=== PATIENT | male | born 1945 | race Caucasian/White ===

== ENCOUNTER 2016-05-11 10:16 | Inpatient (IN) | payer OTHER ==
[2016-05-11] MEDS ORDERED: FLONASE NAS PRN (12:15)
[2016-05-11 12:48] LABS: MANUAL DIFF NEEDED? NO
[2016-05-11 12:53] LABS: BASO% 0.3 % (0.0-0.8); EOS# 0.01 X1000 (0.0-0.7); EOS% 0.1 % (0.0-10.0); HEMATOCRIT 29.7 % (42.0-52.0); HEMOGLOBIN 9.3 g/dL (14.0-18.0); IMM GRAN# 0.06 X1000 (0.0-0.04); IMM GRAN% 0.5 % (0.0-0.5); LYMPH# 1.98 X1000 (1.2-3.4); LYMPH% 16.9 % (20.5-51.1); MCH 24.7 PG (27-31); MCHC 31.3 g/dL (33-37); MONO# 1.36 X1000 (0.11-0.59); MONO% 11.6 % (1.7-9.3); MPV 9.1 FL (7.4-10.4); NEUT% 70.6 % (42.2-75.2); PLT 615 X1000 (130-400); RBC 3.76 XMIL (4.7-6.1)
[2016-05-11] MEDS ORDERED: LOPRESSOR PO ONE (12:55)
[2016-05-11] MEDS ORDERED: ROCEPHIN 1 GM/NS 50 ML IV SCH (13:00)
[2016-05-11 13:18] LABS: AGAP 13; ALBUMIN 2.6 g/dL (3.5-5.0); ALKALINE PHOSPHATASE 70 U/L (32-122); BUN 8 mg/dL (8-22); CALCIUM 9.5 mg/dL (8.8-10.2); CHLORIDE 95 mmol/L (98-107); COSMO 273; GOT 8 U/L (10-34); GPT 5 U/L (10-44); POTASSIUM 3.6 mmol/L (3.5-5.1); SODIUM 134 mmol/L (136-145); TCO2 26 mmol/L (25-35); TOTAL PROTEIN 7.1 g/dL (6.3-8.3)
[2016-05-11 13:27] LABS: FREE T4 1.08 ng/dL (0.93-1.70)
[2016-05-11] MEDS ORDERED: CARDIZEM 100 MG/NS 100 ML ONE (14:05)
[2016-05-11] MEDS ORDERED: CARDIZEM ONE (14:05)
[2016-05-11] MEDS ORDERED: CARDIZEM IV ONE (14:11)
[2016-05-11 14:19] LABS: URINE CULTURE NEEDED? NO; URINE MICRO REVIEW NEEDED? NO; URINE SOURCE CATH
[2016-05-11 14:27] LABS: BILIRUBIN URINE NEGATIVE (NEGATIVE); BLOOD URINE SMALL (NEGATIVE); COLOR YELLOW; GLUCOSE URINE 150 mg/dL (NEGATIVE); LEUKOCYTES URINE NEGATIVE (NEGATIVE); NITRITE URINE NEGATIVE (NEGATIVE); PROTEIN URINE 300 mg/dL (NEGATIVE); TURBIDITY URINE CLEAR (CLEAR); UROBILINOGEN URINE NORMAL (NORMAL)
--- NOTE | 2016-05-11 14:28 | Diag Imaging Result Document ---
PROCEDURE NAME: CT THORAX W/O CONTRAST - 05/11/2016 CT CHEST WITHOUT CONTRAST: COMPARISON: None available. FINDINGS: There is a very large right pleural fluid collection. The fluid appears somewhat more dense than that of simple fluid. It would indicate some internal proteinaceous contrast or blood products. However, there is also some streak artifact, which could contribute to this. There is marked atelectasis on the right with essentially the entire right lower lobe and right middle lobe being nonaerated. Much of the right upper lobe is nonaerated. There is pulmonary emphysema involving the left upper lobe and the aerated portion of the right upper lobe. The nonaerated right lower lobe and right middle lobe parenchyma is heterogeneous. It is nonspecific. It is unclear if this is a result of an infectious process or possibly parenchymal masses. There is a portion of the collapsed right lung in the posterior perihilar region that has a vaguely round appearance. Neoplasm cannot be excluded. However, visualization is limited due to lack of IV contrast. There is narrowing of the right mainstem bronchus that appears to be occluded either by the adjacent rounded density or perhaps mucus plugging. In the left upper lobe posteriorly abutting the fissure, there is a 1.5 cm spiculated nodule that is nonspecific. Malignancy cannot be excluded. Short-term followup with an initial repeat chest CT in 3 months is recommended based on [employer] society criteria for this lesion alone. There is also vague nodularity at the right lung apex that is less well defined. There is airspace consolidation seen in part of the aerated portion of the right upper lobe. There are several shotty nonspecific mediastinal lymph nodes. The rounded masslike opacity in the right perihilar region appears to extend to the mediastinum. This may represent malignant lymphadenopathy. It is difficult to further characterize without IV contrast. Limited views of the upper abdomen reveal mild thickening of the left adrenal gland. This probably represents adrenal hyperplasia. These limited views of the upper abdomen are essentially unremarkable, otherwise. There is nothing that would indicate bony metastatic disease. IMPRESSION: 1. Very large right pleural effusion with marked right lung atelectasis as described. 2. Significant heterogeneity involving the atelectatic portions of the right lung. It is unclear if this is a results of an infectious process or potentially due to parenchymal masses. 3. Vaguely masslike density involving the atelectatic right lung in the posterior perihilar region as described with adjacent narrowing of the right mainstem bronchus either due to mass effect or mucus plugging. 4. Spiculated nodule in the left upper lobe as described above. 5. Pulmonary emphysema. 6. Other incidental/nonacute findings detailed above.
[2016-05-11 14:29] LABS: UR EPITHELIAL CELLS <10 /HPF (<10); URINE BACTERIA NEGATIVE /HPF; URINE RBC <10 /HPF (<10); URINE WBC <10 /HPF (<10)
[2016-05-11] MEDS: CARDIZEM 100 MG/NS 100 ML IV SCH ×2 (14:42→23:50)
[2016-05-11] MEDS: NS 1,000 ML IV SCH (14:50)
--- NOTE | 2016-05-11 14:57 | CONSULTATION ---
DATE OF CONSULTATION: 05/11/2016 REASON FOR CONSULTATION: Cardiology was consulted for atrial flutter, SVT. HISTORY OF PRESENT ILLNESS: Mr. Carrero is a 71-year-old gentleman who was transferred from [facility], [place]. He for the last 20 years has been having episodes of palpitations. This is as per his daughter. He went to the [facility], [place] with increasing shortness of breath. Denies chest pain. Electrocardiogram was noted to have supraventricular tachycardia flutter like features which was paroxysmal. Patient was subsequently transferred here. He has COPD, has noticed increasing shortness of breath. There is history of dementia as well. He has had TIAs in the past. He has had cough with mucoid expectoration. There is no hemoptysis. Does not complain of any fevers or chills. REVIEW OF SYSTEMS: A 14-point review of system was done. GI: There is no history of nausea, vomiting, diarrhea. There is no history of hematemesis or melena. Central nervous system: No focal weakness to suggest CVA, TIA. : There is no dysuria or hematuria. PAST MEDICAL HISTORY: Dementia, COPD, history of left-sided CVA in the past, diabetes, hypertension. HOME MEDICATIONS: Included. 1. Inhalers. 2. Pioglitazone 45 mg p.o. at bedtime. 3. Metformin 1000 mg p.o. b.i.d. 4. Benazepril 40. 5. Glimepiride 5. 6. Metoprolol 25. ALLERGIES: He is not known to be allergic to any medications. PHYSICAL EXAMINATION: Vital Signs: Blood pressure was 180/86, heart rate 150. Cardiovascular System: Normal jugular venous pressure. First and second heart sounds heard. There was no S3 gallop. There was soft murmur. Respiratory System: Few scattered wheeze. Abdomen: Soft, nontender. There was no guarding or rigidity. Bowel sounds were heard. Central nervous system: Moving all 4 extremities. Detailed central nervous system examination not performed. LABORATORY EXAMINATION: Revealed a hemoglobin of 9.3, hematocrit 29, platelet count of 615,000. Sodium 134, potassium 3.6, BUN 8, creatinine 0.7. Troponin negative. TSH was normal. He had a CT scan done which reports pending. ASSESSMENT AND PLAN: Mr. Gerald Carrero is a 71-year-old gentleman with history of transient ischemic attack in the past, hypertension, diabetes, dementia, chronic obstructive pulmonary disease, chronic palpitations for at least 20 years is admitted with increasing shortness of breath and was noted to be in atrial flutter transferred to [facility]. He was in a rate of 150 beats per minute but looks like a flutter and with Cardizem converted to sinus rhythm and has paroxysmal of premature atrial contractions as well. RECOMMENDATIONS: 1. Will get an echocardiogram to assess cardiac and valvular function. 2. Continue with Cardizem drip. 3. He has dementia, history of TIA in the past. Given this he needs to be anticoagulated. However his hemoglobin and hematocrit is low. I am not sure whether he has had any GI bleeding but from a history standpoint he has not had any GI bleeding. His MCV was 79. Will get stools for occult blood to make sure there is no bleeding issues. Ct chest pending 4. Hypertension. Continue with his current medications. 5. Diabetes. Continue with his current medications. Thank you for the consult. Will follow hospital course. LUZ MARIA
[2016-05-11] MEDS ORDERED: VANCOMYCIN IV PER PHARMACY MISC SCH (15:00)
[2016-05-11 15:16] LABS: ALLEN TEST YES; BE 4.1 mmoll (-3.0-3.0); BLOOD TYPE ARTERIAL; DRAW SITE R RADIAL; METHB 1.7 % (0.0-1.5); O2(CT) 12.8 mL/dL (15.0-23.0); PCO2(98.6) 41 mmHg (35-45); PO2(98.6) 92 mmHg (60-100); SAMPLE BLOOD; SAO2 98.9 % (95.0-100.0); THB 9.4 g/dL (11.5-17.4); pH(98.6) 7.45 (7.35-7.45)
[2016-05-11 15:17] LABS: MODALITY VENTIMASK
[2016-05-11] MEDS: ATIVAN IV PRN (15:19)
[2016-05-11] MEDS: ZOSYN 3.375 GM/NS 50 ML IV SCH ×2 (15:19→21:30)
[2016-05-11] MEDS: XOPENEX NEB INH SCH ×3 (15:39→22:52)
[2016-05-11] MEDS: ATROVENT NEB INH SCH ×3 (15:39→22:52)
[2016-05-11] MEDS ORDERED: VANCOMYCIN 2,000 MG in NS 500 ML IV ONE (16:00)
[2016-05-11] MEDS ORDERED: VANCOMYCIN 1,650 MG in NS 250 ML IV SCH (16:00)
[2016-05-11] MEDS: HUMULIN R SUBQ SCH ×2 (16:13→21:29)
[2016-05-11] MEDS: MORPHINE IV PRN (17:40)
[2016-05-11] MEDS ORDERED: LASIX ONE (17:52)
[2016-05-11] MEDS ORDERED: LASIX IV ONE (17:53)
[2016-05-11 19:02] LABS: SPECIMEN PLEURAL FLUID
[2016-05-11 19:26] LABS: TOTAL PROT BODY FLUID 4.9 g/dL
[2016-05-11 19:27] LABS: DIFF NEEDED? YES; WBC BF 622 /cumm
[2016-05-11 19:28] LABS: MONOS 88 %; POLYS 12 %
--- NOTE | 2016-05-11 19:48 | CONSULTATION ---
DATE OF CONSULTATION: 05/11/2016 REQUESTING PHYSICIAN: Dr. Ugarte. REASON FOR CONSULTATION: Pleural effusion/pneumonia. HISTORY OF PRESENT ILLNESS: Mr. Carrero is a 71-year-old white male with a greater than 100 pack year history for tobacco, who stopped smoking 3 months ago because she "lost the taste for tobacco." The patient has had significant weight loss over the last 6 months. He previously wore a size 52 waist in his pants and is now down to a 36. Patient's daughter reports he has been trying to lose weight due to pain from spinal stenosis. The patient has had a history of COPD for many years. She reports over the last 3 days he has had increasing shortness of breath, fevers of 101 degrees, and sweats. The patient was brought to [facility], was noted to have near opacification of the right hemithorax along with periods of SVT. He was transferred to [facility] for additional evaluation and treatment. CT scan of the thorax was performed which reveals massive right-sided pleural effusion with minimal aeration of the left upper lobe. There appears to be Tumor/obstruction of the right lower lobe with possible mass extending into the subcarinal region. PAST MEDICAL HISTORY: 1. COPD with recent discontinuation of tobacco as per above. 2. History of stroke with residual left-sided weakness. 3. History of coronary artery disease with unknown cardiac events. 4. Diabetes mellitus. 5. COPD. 6. Hypertension. 7. Spinal stenosis. PREVIOUS SURGERIES: None. KNOWN DRUG ALLERGIES: None. REVIEW OF SYSTEMS: Was obtained from his daughter and is outlined above. FAMILY HISTORY: Positive for hypertension, diabetes, strokes and 1 family member with mesothelioma. PHYSICAL EXAMINATION: General: Reveals a chronically ill-appearing white male with mild increased work of breathing. Vital signs: BP 168/90, heart rate 121, respiration rate 25, oxygen saturation 97% on 35% FiO2. HEENT: Pupils are equal and reactive, oropharynx is clear. Neck: Supple. Chest: Reveals markedly diminished breath sounds in the right hemithorax. Cardiac Exam: Increased rate. Regular rhythm. Abdomen: Soft without hepatosplenomegaly. Extremities: Without edema. LABORATORIES: CT scan as per HPI. White blood count 11.72, hemoglobin 9.3, platelet count 615,000. Arterial blood gas on 35% Ventimask, pH 7.45, pCO2 of 41, PO2 of 92. Electrolytes. Sodium 134, potassium 3.6, chloride 95, BUN 8, creatinine 0.5. Calcium level is normal at 9.5, but he most likely has hypercalcemia when we corrected for an albumin of 2.6. IMPRESSION: A 71-year-old with extensive tobacco history, significant weight loss, probable lung mass with large right-sided pleural effusion. The patient has had some fevers and sweats and my suspicion is he has a postobstructive pneumonia. However, with changes on CT scan, he could also have an empyema. RECOMMENDATIONS: 1. Agree with broad-spectrum antibiotics covering both gram positives and gram-negative organisms as you are doing. 2. Agree with chest tube placement. However, the right lower lobe may not reexpanded if he has endobronchial tumor. 3. Anticipate bronchoscopy when he is clinically able to undergo this procedure. 4. The patient is listed as a do not resuscitate level 2. His daughter reports that if he has tumor that he would not want radiation or treatment and adamantly wants to be taken home to .
--- NOTE | 2016-05-11 19:53 | HISTORY AND PHYSICAL ---
PRIMARY CARE PROVIDER: Doris Madden MD CHIEF COMPLAINT: Shortness of breath. Fever. HISTORY OF PRESENT ILLNESS: Mr. Carrero is an ill appearing 71-year-old male, who is currently in no distress, but does have a history of diabetes, hypertension, COPD, CVA, myocardial infarction, dementia, who for the last 3 weeks per his daughter has had upper respiratory infection symptoms. The patient refused to go to the doctor. This morning when he asked for her help to get to the bathroom, he was unable to stand, and she said he felt hot. When she checked his temperature it was 101.1 degrees. They proceeded to go to [facility] where he was found to have a heart rate up to 188, 150s, 180s and received 2 doses of adenosine which brought his heart rate back down. Given his confused state at that time, apparently he was nonverbal there, they did a head CT. The results were not sent. The disk was sent to our Radiology Department. Other findings is that he had a chest x-ray, which showed a very large right pleural effusion and it was deemed medically necessary for a transfer to [facility] for further workup. Here, chest CT revealed a very large right pleural effusion which is unclear if it is from infectious process or potentially due to parenchymal masses. It also showed pulmonary emphysema. He is currently on 35% Venturi mask as nasal cannula got on his nerves. We consulted, Pulmonary, General Surgery and Cardiology for further work up. The daughter who he has been living with for the past 4-6 months states that he has had shortness of breath, cough with very thick clear copious amounts of phlegm, She states that his urine has been dark, although he has normal stools, no blood in the urine or in the stools. She does state that he has had very poor appetite and poor p.o. intake. He has had a 40 pound weight loss in the last 6 months. For the last 4 mornings he has woken up with nausea and vomiting. The patient states that he does gets strangled at times when he is trying to eat. He is also having issues with insomnia and inability to sleep at night. Apparently 2 months ago, he also had a right bottom tooth infection which he received antibiotics for. The daughter also states that prior to moving in with her 4-6 months ago, his home bathroom was full of mold. At [facility], the antibiotic therapy he received was azithromycin and Rocephin. We will admit him to ICU. The patient wishes to be a Do Not Resuscitate level 2. No chest compressions or intubation, but is okay with drips for blood pressure only temporarily. PAST MEDICAL HISTORY: Diabetes mellitus type 2. Hypertension. CVA/TIA. Coronary artery disease with GA. COPD. Seasonal allergies. GERD. Dementia. PAST SURGICAL HISTORY: None. SOCIAL HISTORY: Quit smoking 2 months ago, but was a 4 pack per day smoker for 40+ years. Denies alcohol or illicit drug use. Has been living with his daughter for 4-6 months. Uses a walker or wheelchair to get around. He is hard of hearing. FAMILY HISTORY: Positive for CVA. Also positive for 3 brothers who apparently worked in the [employer] business who all from a lung cancer. Mesothelioma. REVIEW OF SYSTEMS: Fourteen point review of systems are complete and all are negative, except those mentioned in above HPI. ALLERGIES: No known drug allergies. HOME MEDICATIONS: Cold and flu tablet, 1 tab p.r.n. Ventolin 1 g inhaled as needed. Flonase p.r.n. benazepril 40 mg p.o. daily. Cetirizine HCL 10 mg p.o. daily. Glimepiride 4 mg p.o. daily. Metformin 1000 mg p.o. twice daily. Pioglitazone HCL 45 mg p.o. nightly. Toprol-XL 25 mg p.o. daily. LABORATORY DATA: White blood cells 11,000, hemoglobin 9.3, hematocrit 29.7, MCV 79, platelet count 615,000. Arterial blood gases: PH 7.45, pCO2 41, PO2 92, bicarb 28, base excess 4, saturation 95%. Lactate 0.8, and this is on 35% Venturi mask. Sodium 134, potassium 3.6, BUN 8, creatinine 0.5, glucose 214, calcium 9.5, total bilirubin 0.2, AST 8, ALT 5, CK 19, troponin 0.017. Albumin 2.6. TSH 0.68, T4 1.08. Urinalysis positive for protein 300, glucose 150, ketones 10, small amount of blood. Otherwise, negative. IMAGING/DIAGNOSTICS: 1. Chest CT without contrast: Very large right pleural effusion with marked right lung atelectasis, significant heterogeneity involving the atelectatic portions of the right lung. It is unclear if this is the result of an infectious process or potentially due to parenchymal masses. Vaguely masslike density involving the atelectatic right lung in the posterior perihilar region as described with adjacent narrowing of the right mainstem bronchus either due to mass effect or mucous plugging. A spiculated nodule at the left upper lobe. Pulmonary emphysema. It is recommended for repeat chest CT in 3 months. Could benefit from IV contrast CT. 2. EKG: Sinus rhythm. Rate is 97, QTc is 480. PHYSICAL EXAMINATION: VITAL SIGNS: Temperature is 98.3 degrees, heart rate 100 to 144, respiratory rate 21, blood pressure 182/86, O2 saturation 96% on Venturi mask. HEIGHT AND WEIGHT: 162 pounds, 6 feet 1 inch tall, BMI is 21.4. GENERAL: Mr. Carrero is a 71-year-old male, he is in no acute distress. He is able to answer most questions appropriately, but not all, and he is hard of hearing. HEENT: Atraumatic, normocephalic. Pupils equal, round, reactive to light. Extraocular movements are intact. Mucous membranes are dry. NECK: No JVD or carotid bruits noted. CARDIOVASCULAR: Tachycardic rate and rhythm. No rubs, gallops or murmurs. S1-S2. PULMONARY: Absent breath sounds throughout the right anteriorly. The left upper and lower is clear to auscultation. He has no accessory muscle use or work of breathing noted, but he is on 35% Venturi mask as he refused nasal cannula. GI: Soft, nontender, nondistended. Positive bowel sounds x4. EXTREMITIES: No edema noted. +2 dorsalis and radial pulses. SKIN: Warm, dry, intact. NEUROLOGIC: Oriented to name and place. Disoriented to year. Moves all extremities equally and follow commands. ASSESSMENT AND PLAN: 1. Large right pleural effusion. It is unknown if this is infectious versus cause of parenchymal masses. There is some question as to whether there is mucous plugging. There is significant atelectasis in the right side. Narrowing of the right mainstem bronchus. We have consulted Dr. Alvarado with General Surgery for possible chest tube placement. Once pleural fluids are obtained, we will send for culture studies and labs. 2. Severe chronic obstructive pulmonary disease, but not an exacerbation. We will go ahead and do at least inhaled steroids, Xopenex and Atrovent nebulizers; due to high heart rate we will do Xopenex and Mucomyst for secretions. We have consulted Pulmonary for assisting with management. Currently he is on 35% Venturi with good oxygenation, but he is not in distress. Arterial blood gases do not reveal that he is in CO2 retention at this time. 3. Diabetes mellitus type 2. We will do pattern blood glucoses and Accu-Cheks. 4. Atelectasis and pneumonia of the right lung. We will do Zosyn and vancomycin, pulmonary toilet, oxygen as needed. Sputum culture if able. 5. Leukocytosis. Again, we will order blood cultures, urinalysis. Urinalysis was negative for urinary tract infection. Sputum culture if able, but we will continue with antibiotics. 6. Thrombocytosis is likely secondary to inflammatory response or infection. 7. Anemia of unknown disease. We will do anemia labs. There is some blood in the urinalysis. We will check a stool for blood. 8. Hypertension. Continue with metoprolol. 9. Supraventricular tachycardia. Received adenosine twice at the outside hospital. Dr. Prieto has been consulted. He was started on a Cardizem drip with a Cardizem bolus. 10. History of cerebrovascular accident and transient ischemic attack. He had a head computed tomography performed at the outside hospital and the CD is at our Radiology Department to be read. 11. History of coronary artery disease and myocardial infarction. Cardiac enzymes are negative. 12. Dementia. 13. Gastrointestinal prophylaxis and gastroesophageal reflux disease. Continue proton pump inhibitor. 14. Deep venous thrombosis prophylaxis. Sequential Compression Devices for now. 15. Tobacco abuse. Apparently he quit 2 months ago, but he was a pretty heavy smoker, 4 pack per day smoker for 40+ years. Continued cessation was discussed. Dictated by DEVORA Fu for Jose Ugarte MD
--- NOTE | 2016-05-11 19:55 | OPERATIVE NOTE ---
PROCEDURE DATE: 05/11/2016 PROCEDURE PERFORMED: Right tube thoracostomy. SURGEON: Aniceto Alvarado MD. PREOPERATIVE DIAGNOSES: 1. Massive right pleural effusion. 2. Shortness of breath. POSTOP DIAGNOSES: 1. Massive right pleural effusion. 2. Shortness of breath. DESCRIPTION OF PROCEDURE: The patient was sedated. Permit was obtained from the daughter. The right anterolateral chest was prepped and draped in a sterile fashion. We anesthetized the skin with 1% lidocaine. We made an incision and dissected through the subcutaneous tissue just over a rib into the pleural space. We enlarged the hole enough to introduce a 28 trocar chest tube which we did to the extent that it would go to the apex of the chest. We then clamped it off and passed it to our Pleur-Evac and allowed the fluid to drain. It quickly filled up completely 1 Pleur-Evac and overflow and we had to attached it to another Pleur-Evac, approximately 3000 mL of serous fluid was obtained. We sent the 1st Pleur-Evac for cytology. We secured the tube to the skin with 0 silk. A sterile gauze dressing was applied. A chest x-ray was ordered.
[2016-05-11] MEDS: MUCOMYST 20% INH SCH (20:14)
[2016-05-11] MEDS: PULMICORT INH SCH (20:15)
[2016-05-11] MEDS: LOPRESSOR PO SCH (21:31)
[2016-05-12] MEDS: ZOSYN 3.375 GM/NS 50 ML IV SCH ×4 (03:00→21:03)
[2016-05-12] MEDS: ATROVENT NEB INH SCH ×6 (03:32→22:55)
[2016-05-12] MEDS: XOPENEX NEB INH SCH ×6 (03:32→22:55)
[2016-05-12 04:30] LABS: ALLEN TEST YES; BE -0.4 mmoll (-3.0-3.0); BLOOD TYPE ARTERIAL; DRAW SITE R RADIAL; METHB 1.7 % (0.0-1.5); O2(CT) 13.7 mL/dL (15.0-23.0); PCO2(98.6) 38 mmHg (35-45); PO2(98.6) 108 mmHg (60-100); SAMPLE BLOOD; SAO2 99.1 % (95.0-100.0); pH(98.6) 7.41 (7.35-7.45)
[2016-05-12 04:31] LABS: MODALITY BI PAP
[2016-05-12 05:21] LABS: MANUAL DIFF NEEDED? NO
[2016-05-12 05:26] LABS: BASO% 0.4 % (0.0-0.8); HEMATOCRIT 29.6 % (42.0-52.0); HEMOGLOBIN 9.2 g/dL (14.0-18.0); IMM GRAN# 0.05 X1000 (0.0-0.04); IMM GRAN% 0.4 % (0.0-0.5); LYMPH# 1.67 X1000 (1.2-3.4); LYMPH% 13.1 % (20.5-51.1); MCH 24.7 PG (27-31); MCHC 31.1 g/dL (33-37); MCV 79.4 FL (81-99); MONO# 1.18 X1000 (0.11-0.59); MONO% 9.2 % (1.7-9.3); NEUT% 76.9 % (42.2-75.2); PLT 513 X1000 (130-400); RBC 3.73 XMIL (4.7-6.1)
[2016-05-12 05:39] LABS: HEMOGLOBIN A1C 8.9 % (4.8-6.0)
--- NOTE | 2016-05-12 05:47 | EKG Report ---
Test Performed on : 05/12/2016 05:14:20 AM Test Reason : aflutter Blood Pressure : / mmHG Vent. Rate : 069 BPM Atrial Rate : 069 BPM P-R Int : 170 ms QRS Dur : 090 ms QT Int : 468 ms P-R-T Axes : 071 003 098 degrees QTc Int : 501 ms Normal sinus rhythm. Nonspecific ST and T wave abnormality Prolonged QT Abnormal ECG When compared with ECG of 11-MAY-2016 15:03, (Unconfirmed) Vent. rate has decreased BY 73 BPM Nonspecific T wave abnormality now evident in Anterolateral leads Rate has decreased. Confirmed by Rodriguez Talley MD ([id number]) on 05/14/2016 8:58:02 PM
[2016-05-12 05:49] LABS: AGAP 19; ALBUMIN 2.3 g/dL (3.5-5.0); ALKALINE PHOSPHATASE 64 U/L (32-122); BUN 13 mg/dL (8-22); CALCIUM 8.6 mg/dL (8.8-10.2); CHLORIDE 98 mmol/L (98-107); COSMO 283; GOT 8 U/L (10-34); GPT < 5 U/L (10-44); IRON SATURATION 8 %; POTASSIUM 3.8 mmol/L (3.5-5.1); PREALBUMIN 7.8 mg/dL (20-40); SODIUM 138 mmol/L (136-145); TCO2 21 mmol/L (25-35); TIBC 135 ug/dL; TOTAL BILIRUBIN 0.27 mg/dL (0.20-1.00); TOTAL IRON 11 ug/dL (53-167); TOTAL PROTEIN 6.5 g/dL (6.3-8.3); UNBOUND IRON 124 ug/dL (112-346)
--- NOTE | 2016-05-12 05:49 | EKG Report ---
Test Performed on : 05/11/2016 1:29:36 PM Test Reason : TACHYCRDIA Blood Pressure : / mmHG Vent. Rate : 097 BPM Atrial Rate : 097 BPM P-R Int : 144 ms QRS Dur : 098 ms QT Int : 378 ms P-R-T Axes : 002 016 082 degrees QTc Int : 480 ms Normal sinus rhythm. Nonspecific ST and T wave abnormality Prolonged QT Abnormal ECG No previous ECGs available Confirmed by Rodriguez Talley MD ([id number]) on 05/14/2016 8:54:02 PM
[2016-05-12 06:03] LABS: FERRITIN 352 ng/mL (30-400)
[2016-05-12] MEDS: HUMULIN R SUBQ SCH ×4 (06:21→21:02)
[2016-05-12 06:28] LABS: LDH 137 U/L (135-225)
[2016-05-12] MEDS: PULMICORT INH SCH ×2 (07:29→19:24)
[2016-05-12] MEDS: MUCOMYST 20% INH SCH ×2 (07:29→19:24)
[2016-05-12] MEDS: SODIUM CHLORIDE 0.9% INJ SCH (07:36)
[2016-05-12] MEDS: PROTONIX IV SCH (07:36)
--- NOTE | 2016-05-12 08:05 | Diag Imaging Result Document ---
PROCEDURE NAME: CHEST-PORTABLE - 05/12/2016 SINGLE FRONTAL RADIOGRAPH OF THE CHEST: COMPARISON: 05/11/2016. FINDINGS: The right chest tube is in approximately stable position. There is a persistent pneumothorax at the right lung base, likely an ex vacuo pneumothorax. However, it is probably somewhat smaller than the previous study as there appears to be better aeration of the right upper lobe as compared to the previous study. There is a persistent rounded masslike density in the perihilar region as well as significant atelectasis. There is also increase in opacity in the right mid lung zone just superior to the level of the chest tube suggesting possible developing infiltrate or perhaps focal worsening of atelectasis. The left lung is essentially stable. There is prominence of the upper mediastinum on the right similar to the previous study worrisome for adenopathy. Cardiac silhouette is essentially stable. IMPRESSION: 1. Interval modest decrease in size of the right-sided pneumothorax that is still moderate in size at the right lung base. 2. Interval increase in opacity just superior to the right chest tube. Please see above discussion.
--- NOTE | 2016-05-12 08:29 | Diag Imaging Result Document ---
PROCEDURE NAME: CHEST-PORTABLE - 05/11/2016 SINGLE FRONTAL RADIOGRAPH OF THE CHEST: COMPARISON: None available. FINDINGS: There is a recently placed right thoracostomy tube. The tip projects over the medial right mid lung zone. The very large right pleural fluid collection seen on a recent CT appears to have largely been evacuated. There is now a large right pneumothorax, likely an ex vacuo pneumothorax. It probably occupies 40-50% of the right hemithorax. There is still significant atelectasis at the right lung base and there is a rounded masslike density suspicious for neoplasm as was seen on the previous CT in the perihilar region. There is also prominence of the mediastinum on the right suggesting lymphadenopathy. Otherwise, the cardiac silhouette is essentially unremarkable. IMPRESSION: Recent placement of a right chest tube with evacuation of most of the large pleural fluid collection on the right seen on recent CT with a residual prominent ex vacuo pneumothorax.
[2016-05-12] MEDS: LOPRESSOR PO SCH ×2 (08:55→21:03)
--- NOTE | 2016-05-12 11:32 | EKG Report ---
Test Performed on : 05/11/2016 3:03:01 PM Test Reason : ICU. Not ordered in mT Blood Pressure : / mmHG Vent. Rate : 142 BPM Atrial Rate : 142 BPM P-R Int : 120 ms QRS Dur : 092 ms QT Int : 318 ms P-R-T Axes : 000 033 006 degrees QTc Int : 489 ms Sinus tachycardia. Nonspecific ST abnormality Abnormal ECG When compared with ECG of 11-MAY-2016 13:29, (Unconfirmed) Rate has increased. Confirmed by Rodriguez Talley MD ([id number]) on 05/14/2016 8:55:54 PM
[2016-05-12] MEDS: NS 1,000 ML IV SCH ×2 (12:04→14:58)
[2016-05-12] MEDS: MORPHINE IV PRN ×3 (13:00→23:20)
--- NOTE | 2016-05-12 13:40 | ECHO REPORT ---
ORDER DATE: 05/11/2016 ECHOCARDIOGRAPHIC MEASUREMENTS: 1. Interventricular septum 1.5. Left ventricular posterior wall 1.5 cm. Diastolic diameter 4.4. Left atrium 5. 2. Technically suboptimal study. Poor parasternal windows. 3. Pulmonic valve not well visualized. Mitral valve was normal. Aortic valve leaflets are sclerosed, trileaflet. 4. Tricuspid valve was normal. 5. Normal left ventricular cavity size. Estimated ejection fraction of 55%. 6. There was mild mitral regurgitation. Mild tricuspid regurgitation. Peak velocity across the tricuspid valve was 3.5 m/sec. Pulmonary artery systolic pressure of 60 mmHg. There is pulmonary arterial hypertension. 7. There is peak velocity across the aortic valve less than 2 m/sec. By Doppler studies there is no aortic stenosis or regurgitation. 8. Anterior echo-free space suggestive pericardial fat pad was noted. There is no pericardial effusion or obvious intracardiac mass or thrombus seen.
[2016-05-12] MEDS ORDERED: VANCOMYCIN 1,650 MG in NS 250 ML IV SCH (16:00)
[2016-05-12] MEDS: ATIVAN IV PRN (17:57)
[2016-05-12] MEDS: LOVENOX SUBQ SCH (19:48)
[2016-05-12] MEDS: CARDIZEM PO SCH (21:02)
--- NOTE | 2016-05-12 22:16 | PROGRESS NOTE ---
DATE: 05/12/2016 SUBJECTIVE: The patient was noted to be somewhat lethargic this morning while on BiPAP. According to Nursing staff, the patient did awaken later in the day and was requesting food. OBJECTIVE: Vital Signs: Temperature 98.3 degrees, blood pressure 141/76, heart rate 86, respiration 18, O2 saturations 97% on 4 L nasal cannula. General: This is a chronically ill- appearing, elderly male, lying in bed, in no acute distress. Head: Normocephalic, atraumatic. Heart: S1, S2 normal. Regular rate and rhythm. Lungs: Coarse breath sounds. No crackles. No rales. Abdomen: Positive bowel sounds. Soft, nontender, nondistended. Extremities: No edema. No cyanosis. No calf tenderness. Neurologic: The patient is awake and alert. No focal neurologic deficits noted. LABS: White blood cell count 12, hemoglobin 9.2, hematocrit 29, platelets 513, 000. Sodium 138, potassium 3.8, chloride 98, CO2 21, BUN 13, creatinine 1.1, glucose 229, iron 11 , hemoglobin A1c 8.9. Vitamin B12 179. ASSESSMENT AND PLAN: 1. Acute respiratory failure. Multifactorial. The patient appears to have a lung mass as well as a large pleural effusion. The patient is status post right-sided chest tube placement. Continue with supplemental oxygen, bronchodilator therapy and broad-spectrum antibiotic therapy. Pulmonary and General Surgery are following. 2. Atrial flutter. The patient is now on p.o. Cardizem. Cardiology is following. 3. Right pneumothorax. Continue with the chest tube. 4. Diabetes mellitus type 2. Continue on sliding scale insulin. 5. Anemia of chronic disease. The patient's hemoglobin and hematocrit is stable. 6. Vitamin B12 deficiency. We will start the patient on vitamin B12 replacement. 7. Pneumonia. Continue with broad-spectrum antibiotic therapy plus bronchodilator therapy and supplemental oxygen. 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 Aware. Pulmonary is following. 9. Deep vein thrombosis prophylaxis. We will start the patient on Lovenox. 10. Gastrointestinal prophylaxis. Continue on IV Protonix. [facility]
[2016-05-13] MEDS: ATIVAN IV PRN ×2 (00:06→04:59)
[2016-05-13] MEDS: ZOSYN 3.375 GM/NS 50 ML IV SCH ×4 (02:42→20:20)
[2016-05-13] MEDS: XOPENEX NEB INH SCH ×6 (03:06→23:10)
[2016-05-13] MEDS: ATROVENT NEB INH SCH ×6 (03:06→23:10)
[2016-05-13] MEDS ORDERED: CARDIZEM IV ONE (03:09)
[2016-05-13] MEDS: CARDIZEM PO SCH ×3 (04:09→20:00)
[2016-05-13] MEDS: MORPHINE IV PRN ×2 (04:09→20:00)
[2016-05-13] MEDS: CARDIZEM 100 MG/NS 100 ML IV SCH ×2 (05:22→20:22)
[2016-05-13 05:46] LABS: BASO% 0.3 % (0.0-0.8); EOS# 0.03 X1000 (0.0-0.7); EOS% 0.2 % (0.0-10.0); HEMATOCRIT 33.5 % (42.0-52.0); HEMOGLOBIN 10.2 g/dL (14.0-18.0); IMM GRAN% 0.5 % (0.0-0.5); LYMPH# 2.27 X1000 (1.2-3.4); LYMPH% 12.4 % (20.5-51.1); MANUAL DIFF NEEDED? YES; MCH 24.5 PG (27-31); MCHC 30.4 g/dL (33-37); MCV 80.3 FL (81-99); MONO# 1.49 X1000 (0.11-0.59); MONO% 8.1 % (1.7-9.3); MPV 9.6 FL (7.4-10.4); NEUT% 78.5 % (42.2-75.2); PLT 508 X1000 (130-400); RBC 4.17 XMIL (4.7-6.1)
[2016-05-13 05:54] LABS: CALCIUM 9.1 mg/dL (8.8-10.2); POTASSIUM 3.7 mmol/L (3.5-5.1)
[2016-05-13] MEDS: HUMULIN R SUBQ SCH ×5 (06:34→20:23)
[2016-05-13 07:12] LABS: LYMPHS 14 % (21-51); MONO 19 % (1-9)
[2016-05-13] MEDS: SODIUM CHLORIDE 0.9% INJ SCH (08:22)
[2016-05-13] MEDS: NS 1,000 ML IV SCH ×3 (08:22→20:18)
[2016-05-13] MEDS: PROTONIX IV SCH (08:22)
[2016-05-13] MEDS: PULMICORT INH SCH ×2 (08:27→19:06)
[2016-05-13] MEDS: MUCOMYST 20% INH SCH ×2 (08:28→19:06)
--- NOTE | 2016-05-13 08:47 | Diag Imaging Result Document ---
PROCEDURE NAME: CT THORAX W/O CONTRAST - 05/13/2016 CT OF THE CHEST WITHOUT CONTRAST: COMPARISON: The current study is compared with that of 05/11/2016. FINDINGS: There is severe COPD. There is a fairly large pneumothorax on the right despite the presence of a chest tube. This was not the case on the previous study; however, on the previous study, there was much more pleural fluid. It is possible the evacuation of the pleural fluid collection has left a potential space in which the right lower lobe and middle lobe are unable to re-expand into. Nevertheless, there has been some improvement in pneumatization of the right lung compared to the previous study. The upper lobe is almost completely re-expanded. There is mild compressive atelectasis in the left lower lobe due to a small pleural effusion. This was not present at the time of the previous study. There is still apparent occlusion or obstruction of the bronchus intermedius and the presence of a mass in the right lower lobe is suggested. There is some soft tissue emphysema in the right chest wall. There is a 2.4 cm precarinal/right paratracheal node at the level of the azygous vein which is, if anything, more prominent than on the previous study. The regional skeleton is stable in appearance. There is some stranding in the perinephric space on the left as well as the pararenal space posterolaterally. This is more apparent than on the previous study. IMPRESSION: Improved pneumonia/atelectasis on the right. Continued occlusion of the bronchus intermedius. Persistent pneumothorax on the right. New left pleural effusion and basilar atelectasis.
[2016-05-13] MEDS: VITAMIN B-12 SL SCH (09:22)
[2016-05-13] MEDS: LOPRESSOR PO SCH ×2 (09:22→20:20)
[2016-05-13] MEDS ORDERED: VANCOMYCIN 1 GM/NS 250 ML IV SCH (10:00)
[2016-05-13 11:29] LABS: UR CREAT RANDOM 146.2 mg/dL (14-26); UR PROT RANDOM 100.4 mg/dL
[2016-05-13 11:36] LABS: UR SODIUM 38 mmoll; UR UREA NITROGEN RANDOM 199 mg/dL
[2016-05-13 13:59] LABS: URINE SOURCE CATH
[2016-05-13 14:28] LABS: BILIRUBIN URINE SMALL (NEGATIVE); BLOOD URINE MODERATE (NEGATIVE); CLARITY HAZY (CLEAR); COLOR YELLOW; GLUCOSE URINE NEGATIVE (NEGATIVE); LEUKOCYTES URINE NEGATIVE (NEGATIVE); NITRITE URINE NEGATIVE (NEGATIVE); PH URINE 5.5; PROTEIN URINE 30 mg/dL (NEGATIVE); SP GRAVITY URINE 1.025; UROBILINOGEN URINE 0.2 EU/dL (0.2-1.0)
[2016-05-13 14:38] LABS: URINE WBC <10 /HPF (<10)
[2016-05-13 14:39] LABS: URINE EPITHELIAL CELLS <10 /HPF (<10)
[2016-05-13 14:40] LABS: URINE CRYSTAL URIC ACID PRESENT /HPF
--- NOTE | 2016-05-13 14:54 | Diag Imaging Result Document ---
PROCEDURE NAME: US RENAL 2 (RETROPER) COMPLETE - 05/13/2016 RENAL ULTRASOUND: FINDINGS: The study is somewhat suboptimal due to the patient's body habitus. The bladder is empty and there is a Loza catheter. Right kidney is 11.7 x 5.9 x 5.9 cm. The left is 12.7 x 5.1 x 5.3 cm. There is no evidence of hydronephrosis or mass. IMPRESSION: No evidence of obstructive uropathy.
[2016-05-13 17:36] LABS: ALBUMIN 2.4 g/dL (3.5-5.0); CALCIUM 8.8 mg/dL (8.8-10.2); POTASSIUM 3.5 mmol/L (3.5-5.1)
[2016-05-13] MEDS: LOVENOX SUBQ SCH (18:04)
[2016-05-13] MEDS: TYLENOL PO PRN (19:45)
[2016-05-13] MEDS: ZYVOX PO SCH (20:19)
[2016-05-13] MEDS: SODIUM BICARBONATE PO SCH (20:20)
[2016-05-13] MEDS: LEVEMIR SUBQ SCH (20:25)
--- NOTE | 2016-05-13 20:46 | PROGRESS NOTE ---
DATE: 05/13/2016 SUBJECTIVE: The patient is resting comfortably in bed. No acute events noted overnight. OBJECTIVE: Vital Signs: Temperature 97.3 degrees, blood pressure 152/77, heart rate 101, respirations 16, O2 saturations 98% on 2 L nasal cannula. General: This is a chronically ill- appearing elderly male lying in bed in no acute distress. Head: Normocephalic, atraumatic. Heart: S1, S2. Normal. Tachycardic. Lungs: Clear to auscultation bilaterally. No crackles. No rales. Abdomen: Positive bowel sounds. Soft, nontender, nondistended. Extremities: Trace pedal edema. No cyanosis. No calf tenderness. Neuro: The patient is awake and alert. LABS: White blood cell count 18, hemoglobin 10, hematocrit 33, platelets 508, 000. Sodium 135, potassium 3.5, chloride 98, CO2 19, BUN 23, creatinine 1.9, glucose 312, albumin 2.4. ASSESSMENT AND PLAN: 1. Pneumonia. Continue on IV Zosyn. The patient was seen by Dr. Alejandre and Zyvox was added. Continue bronchodilator therapy and supplemental oxygen. 2. 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 Aware. 3. Right pneumothorax status post chest tube. Management as per the general surgeon. 4. Leukocytosis. The patient's antibiotic regimen has been changed. We will continue to monitor this closely. 5. Uncontrolled diabetes mellitus type 2. Will start the patient on Levemir twice a day. Continue sliding scale insulin. 6. Acute kidney injury. The patient's urine output has decreased over the last several hours. Will start the patient on IV fluid hydration. The patient's FENA is less than 1. We will monitor the urine output closely. If it does not improve will consult the motors assembler for further recommendations. We will avoid nephrotoxic agents. 7. Metabolic acidosis. Will start sodium bicarbonate tablets. 8. Atrial flutter. Continue on oral diltiazem plus metoprolol. 9. Vitamin B12 deficiency. Continue on vitamin B12 replacement. 10.Severe protein calorie malnutrition. Continue on ensure with each meal. 11. Deep vein thrombosis prophylaxis. Continue on Lovenox. [facility]
[2016-05-13] MEDS ORDERED: LEVEMIR SUBQ SCH (21:00)
[2016-05-13] MEDS ORDERED: INSULIN PEN NEEDLES ONE (21:10)
[2016-05-14] MEDS: ZOSYN 3.375 GM/NS 50 ML IV SCH ×4 (03:00→22:08)
[2016-05-14] MEDS: ATROVENT NEB INH SCH ×6 (03:52→23:29)
[2016-05-14] MEDS: XOPENEX NEB INH SCH ×6 (03:52→23:29)
--- NOTE | 2016-05-14 05:39 | CONSULTATION ---
DATE OF CONSULTATION: 05/13/2016 CONCLUSION: Patient is admitted the hospital. He has a pneumonia on the right side and had a large pleural effusion which has been drained by a right tube thoracoscopy. RECOMMENDATIONS: The patient is receiving vancomycin and Zosyn. I have stopped the vancomycin and put the patient on p.o. Zyvox. DISCUSSION: The patient was very lethargic. I was unable to obtain a history. The history was taken from review of the chart. The patient came in with shortness of breath and fever. He has also lost approximately 40 pounds in the past [address] scan showed a very large right pleural effusion. It also showed pulmonary emphysema. He has been on vancomycin and Zosyn for 2 days. The patient's CBC shows a white count of 18,380, hemoglobin 10.2, and platelet count 508,000. Creatinine is 1.9. GFR is 35. Pleural fluid had a white blood cell count of 622, a protein of 4.9. Culture is negative, as are blood cultures. CT scan of the chest showed less right-sided pneumonia. There was a right-sided pneumothorax and a left pleural effusion and atelectasis. Renal ultrasound shows no blockage. The patient's creatinine is 1.9. The GFR is 35. PAST MEDICAL HISTORY: Positive for diabetes, hypertension, stroke, coronary artery disease, COPD, seasonal allergies, gastroesophageal reflux disease, and dementia. PAST SURGICAL HISTORY: There is no past surgical history. SOCIAL HISTORY: The patient quit smoking 2 months ago but he was a heavy smoker before that. He does not drink alcoholic beverages or use illicit drugs. He had been living with his daughter. He uses a walker and wheelchair to get around. He is hard of hearing. FAMILY HISTORY: Positive for stroke, lung cancer, and mesothelioma. ALLERGIES: The patient has no known drug allergies. HOME MEDICATIONS: Include metformin, pioglitazone, Toprol, a cold and flu tablet, Ventolin inhaler, and Flonase. PHYSICAL EXAMINATION: Vital Signs: Temperature is 97.3 degrees, pulse 108, respirations 16, blood pressure 152/77. General: This is an ill-appearing, elderly male. He is very lethargic and I was unable to arouse him. Head, Eyes, Ears, Nose, and Throat: No drainage noted from the nose or ears. Lungs: Clear to auscultation. Cardiovascular: Heart rate was regular. Abdomen: Soft and nontender. Extremities: No evidence of erythema or marked swelling. Neurologic: As mentioned above, patient is obtunded. He is breathing on his own. He did not respond to verbal stimuli. There was no tremor. Integument: No rash noted. Thank you for the consult.
[2016-05-14] MEDS: CARDIZEM PO SCH ×3 (05:43→16:52)
[2016-05-14] MEDS: NS 1,000 ML IV SCH ×3 (05:49→18:22)
[2016-05-14] MEDS: HUMULIN R SUBQ SCH ×4 (06:20→21:41)
[2016-05-14 06:25] LABS: MANUAL DIFF NEEDED? NO
[2016-05-14 06:26] LABS: BASO% 0.2 % (0.0-0.8); EOS# 0.19 X1000 (0.0-0.7); EOS% 1.3 % (0.0-10.0); HEMATOCRIT 28.6 % (42.0-52.0); HEMOGLOBIN 8.8 g/dL (14.0-18.0); IMM GRAN# 0.07 X1000 (0.0-0.04); IMM GRAN% 0.5 % (0.0-0.5); LYMPH# 2.56 X1000 (1.2-3.4); LYMPH% 16.9 % (20.5-51.1); MCH 24.2 PG (27-31); MCHC 30.8 g/dL (33-37); MCV 78.8 FL (81-99); MONO# 1.08 X1000 (0.11-0.59); MONO% 7.1 % (1.7-9.3); MPV 8.9 FL (7.4-10.4); PLT 487 X1000 (130-400); RBC 3.63 XMIL (4.7-6.1)
[2016-05-14 07:06] LABS: CALCIUM 8.7 mg/dL (8.8-10.2); POTASSIUM 2.9 mmol/L (3.5-5.1)
[2016-05-14] MEDS: PULMICORT INH SCH ×2 (07:39→19:24)
[2016-05-14] MEDS: MUCOMYST 20% INH SCH ×2 (07:39→19:24)
[2016-05-14] MEDS: POTASSIUM CHLORIDE 20 MEQ/SWI 100 ML IV SCH ×2 (07:54→12:01)
[2016-05-14] MEDS: PROTONIX IV SCH (07:59)
[2016-05-14] MEDS: SODIUM CHLORIDE 0.9% INJ SCH (08:01)
[2016-05-14] MEDS ORDERED: XYLOCAINE 1% ONE (09:08)
[2016-05-14] MEDS ORDERED: XYLOCAINE 2% VISCOUS ONE (09:08)
[2016-05-14] MEDS ORDERED: XYLOCAINE 2% ONE ×2 (09:08→09:33)
[2016-05-14] MEDS ORDERED: EPINEPHRINE ONE (09:09)
[2016-05-14] MEDS ORDERED: SODIUM CHLORIDE 0.9% 20 ML ONE (09:09)
[2016-05-14] MEDS ORDERED: XYLOCAINE 2% MISC ONE (09:54)
[2016-05-14] MEDS ORDERED: XYLOCAINE 2% VISCOUS MT ONE (10:00)
[2016-05-14] MEDS ORDERED: EPINEPHRINE INJ ONE ×2 (10:07→10:10)
[2016-05-14] MEDS ORDERED: XYLOCAINE 2% INJ ONE ×2 (10:07→10:09)
[2016-05-14] MEDS ORDERED: XYLOCAINE 1% INJ ONE ×3 (10:07→10:08)
[2016-05-14] MEDS ORDERED: MYLICON DROPS (DOSE) MISC ONE (10:07)
[2016-05-14] MEDS ORDERED: NS 500 ML ONE (10:47)
[2016-05-14] MEDS ORDERED: ANESTHESIA PB SET 88 IN 5742 ONE (10:47)
[2016-05-14] MEDS: LEVEMIR SUBQ SCH ×2 (11:08→21:41)
[2016-05-14] MEDS: LOPRESSOR PO SCH ×2 (11:20→16:52)
[2016-05-14] MEDS: ZYVOX PO SCH ×2 (11:21→16:53)
[2016-05-14] MEDS: SODIUM BICARBONATE PO SCH ×2 (11:21→20:25)
[2016-05-14] MEDS: VITAMIN B-12 SL SCH (11:21)
[2016-05-14] MEDS ORDERED: KETAMINE (DOSE) ONE (12:36)
[2016-05-14] MEDS ORDERED: VERSED ONE (12:37)
[2016-05-14] MEDS ORDERED: DIPRIVAN 1% ONE (12:37)
--- NOTE | 2016-05-14 13:38 | OPERATIVE NOTE ---
PROCEDURE DATE : PROCEDURE PERFORMED: Bronchoscopy. CLINICAL INDICATIONS: Right lung mass with apparent airway obstruction on CT scan with negative cytology on pleural effusion. DESCRIPTION OF PROCEDURE: The patient was identified in the ICU and subsequently transported to the operating room, room #8, where the procedure was performed. The risks and benefits of the procedure were discussed with the patient and his family. The patient underwent monitor anesthesia care provided by the anesthesia associates. When the patient was sedated, the bronchoscope was advanced through the right nostril to the level of the vocal cords. The vocal cords were smooth and without lesions. The bronchoscope was advanced into the trachea. There was copious amounts of ellis to yellow secretions in the tracheobronchial tree which were suctioned for culture and cytology. The airways to the left main stem, left upper lobe lingula, and left lower lobe were patent. The bronchoscope was directed to the right side. The right main stem was patent. The airways to the right upper lobe were patent. The bronchoscope was directed to the bronchus intermedius. There was extrinsic compression of the posterior wall of the bronchus intermedius which caused 80%-90% occlusion of this airway. The bronchoscope was advanced over the obstruction and an apparent tumor could be seen affecting the airways to the lower lobe. The airway segments to the right lower lobe could not be distinguished due to the tumor and extensive edema. The airflow divider between the right lower lobe and the right middle lobe was identified and was extensively edematous. The bronchoscope could be advanced into the right middle lobe but it was difficult to distinguish airways due to the edema. Multiple biopsies were taken from the tumor affecting the bronchus intermedius and some biopsies were taken from the right lower lobe in a blind fashion. All specimens were placed in a single container. Washings were performed for additional cultures and cytology. There was bleeding associated with the biopsies which was controlled with the instillation of topical epinephrine. The patient tolerated the procedure without difficulty and has subsequently been transferred back to the ICU. IMPRESSION: Apparent tumor causing significant extrinsic compression to the distal bronchus intermedius with apparent tumor distal to this narrowing as outlined above.
[2016-05-14] MEDS: MORPHINE IV PRN (15:12)
[2016-05-14] MEDS: CARDIZEM 100 MG/NS 100 ML IV SCH ×2 (16:12→21:42)
--- NOTE | 2016-05-14 16:55 | PROGRESS NOTE ---
DATE: 05/14/2016 SUBJECTIVE: The patient underwent bronchoscopy with biopsy this morning. He is currently resting comfortably in bed. No acute events noted overnight. OBJECTIVE: Vital Signs: Temperature 98.2 degrees, blood pressure 153/73, heart rate 100, respirations 24, O2 saturations 95% on 3 L nasal cannula. General: This is a chronically ill- appearing, elderly male, lying in bed in no acute distress. Head: Normocephalic, atraumatic. Heart: S1, S2. Normal. Tachycardic. Lungs: Clear to auscultation bilaterally. No wheezes, no rales. No rhonchi. Abdomen: Positive bowel sounds. Soft, nontender, nondistended. Extremities: No edema. No cyanosis. No calf tenderness. Neurologic: The patient is awake. He does have periods of confusion. He is able to move all 4 extremities. LABS: White blood cell count 15, hemoglobin 8.8, hematocrit 28, platelets 487. Sodium 139, potassium 2.9, chloride 101, CO2 22, BUN 24, creatinine 2.4. Glucose 95, calcium 8.7. ProBNP 1887. ASSESSMENT AND PLAN: 1. Pneumonia. Continue on Zyvox and Zosyn plus bronchodilator therapy. Infectious disease and pulmonary are following. 2. Endobronchial tumor and a right lower lobe mass, status post bronchoscopy with biopsy. Will await the pathology results. 3. Right pneumothorax status post chest tube. Management as per the general surgeon. 4. Uncontrolled insulin-dependent diabetes mellitus type 2. The patient's blood sugars have improved slightly with the addition of Levemir twice a day. We will continue to adjust the patient's insulin dosage. 5. Acute kidney injury. Will continue with intravenous fluid hydration. Nephrology is following. 6. Metabolic acidosis. Slightly improved. Continue on sodium bicarbonate tablets. 7. Atrial flutter. Continue on diltiazem plus metoprolol. 8. Severe protein calorie malnutrition. Continue on Ensure. Will advance the diet as tolerated. 9. Vitamin B 12 deficiency. Continue on vitamin B 12 replacement. 10. Deep vein thrombosis prophylaxis. Continue on Lovenox. [facility]
--- NOTE | 2016-05-14 17:43 | PROGRESS NOTE ---
DATE: 05/14/2016 PRESENT ILLNESS: The patient is status post bronchoscopy today. A tumor was found in the right lung which was biopsied by Dr. De La Rosa. Patient also has pneumonia which could in part be due to blockage of the bronchus by the tumor. MEDICATIONS: The patient is on Zyvox and Zosyn. PHYSICAL EXAMINATION: Vital Signs: Temperature is 98.2 degrees, pulse 114, respirations 24, blood pressure 153/73. General: This is an ill-appearing, elderly male. He is in no acute distress at this time. Lungs: Scattered rhonchi. Cardiovascular: Heart tones were distant. They appeared to be regular to me. Abdomen: Soft and nontender. Neurologic: Patient is alert. He is lethargic. He had some sedation for his bronchoscopy. LAB AND X-RAY: White count today is down to 15,110, hemoglobin 8.8, and platelet count 487,000. Creatinine is 2.4. GFR is 27. The culture results are pending, as is the biopsy taken at bronchoscopy by Dr. De La Rosa. ASSESSMENT AND PLAN: For now I will continue the patient's Zosyn and his eye Vioxx pending the results of culture and pathology of the tumor. COMORBIDITIES: Include the fact that he is elderly. He also has a history of smoking although he did stop 2 months ago. Also the patient by virtue of having smoked so does have some degree of chronic obstructive pulmonary disease. Also I should mention the patient also has gastroesophageal reflux disease.
--- NOTE | 2016-05-14 18:09 | CONSULTATION ---
DATE OF CONSULTATION: 05/14/2016 HISTORY OF PRESENT ILLNESS: Dario Carrero, a 71-year-old, white male with diabetes, hypertension, COPD, history of a CVA, dementia. He lives with his daughter because of chronic weakness and does not go to the doctor. She brought him to the hospital because he was weak and unable to move. She stated he "spewed fluid all over me" prior to his transfer. He was significantly short of breath. His initial evaluation demonstrated a large right pleural effusion and parenchymal mass. He has subsequently undergone chest tube placement and bronchoscopic biopsy. Repeat CT done on the - showed continued occlusion of bronchus intermedius on the right with improved pneumonia and atelectasis. In this context, his creatinine has risen from 0.5-2.4 since admission. We were asked to see him in consultation to assist with diagnosis and management. PAST MEDICAL HISTORY: As above. HOME MEDICATIONS: Ventolin, Flonase, benazepril, cetirizine, glimepiride, metformin, pioglitazone, Toprol. ALLERGIES: None. SOCIAL: Smoker up until very recently. No alcohol or tobacco. Lives with his daughter. FAMILY HISTORY: Noncontributory. PHYSICAL EXAM: Vital Signs: Blood pressure 153/73, heart rate 100, respirations 24, afebrile. Intake 1.3 L; output 250 mL. He is net positive about 1.5 L since admission. Skin: Warm and dry. Eyes: Conjunctivae are pink. Pupils are equal. Neck: Neck veins are not distended and not visible at all. Oropharynx is dry. Tongue is coated. Heart: Regular. Lungs: Have diminished breath sounds on the right and no crackles. Abdomen: Soft and nontender. Bowel sounds are present. Extremities: Have no edema, clubbing, or cyanosis. LABORATORY DATA: Sodium 139, potassium 2.9, chloride 101, bicarbonate 22, BUN 24 creatinine 2.4, hemoglobin 8.8. IMPRESSION: Acute kidney injury. Marginally low FENa. He has trace blood and protein. His renal ultrasound has no acute findings. No obvious reason for him to have acute tubular necrosis. He has no hypotension. He has not received intravenous contrast at our facility, and he is not on any medications which are overtly nephrotoxic. Continue intravenous fluid resuscitation and observe his numbers in the morning. No medication changes today. Further recommendations to follow.
[2016-05-14] MEDS: LOVENOX SUBQ SCH (18:23)
[2016-05-14] MEDS: TYLENOL PO PRN (20:25)
[2016-05-15] MEDS: CARDIZEM PO SCH ×3 (02:10→17:45)
[2016-05-15] MEDS: ATROVENT NEB INH SCH ×6 (03:14→22:59)
[2016-05-15] MEDS: XOPENEX NEB INH SCH ×6 (03:14→22:59)
[2016-05-15] MEDS: NS 1,000 ML IV SCH ×2 (03:40→14:03)
[2016-05-15 05:04] LABS: BASO% 0.1 % (0.0-0.8); EOS# 0.23 X1000 (0.0-0.7); EOS% 1.1 % (0.0-10.0); HEMATOCRIT 28.8 % (42.0-52.0); HEMOGLOBIN 8.9 g/dL (14.0-18.0); IMM GRAN% 0.5 % (0.0-0.5); LYMPH# 2.36 X1000 (1.2-3.4); LYMPH% 11.7 % (20.5-51.1); MANUAL DIFF NEEDED? YES; MCH 24.3 PG (27-31); MCHC 30.9 g/dL (33-37); MCV 78.7 FL (81-99); MONO% 7.9 % (1.7-9.3); MPV 9.8 FL (7.4-10.4); NEUT% 78.7 % (42.2-75.2); PLT 507 X1000 (130-400); RBC 3.66 XMIL (4.7-6.1)
[2016-05-15 05:16] LABS: ALBUMIN 2.1 g/dL (3.5-5.0); CALCIUM 8.7 mg/dL (8.8-10.2); MAGNESIUM 1.5 mg/dL (1.5-2.7); POTASSIUM 3.4 mmol/L (3.5-5.1); TOTAL BILIRUBIN 0.37 mg/dL (0.20-1.00); TOTAL PROTEIN 5.9 g/dL (6.3-8.3)
[2016-05-15] MEDS: ZYVOX PO SCH ×2 (05:24→17:45)
[2016-05-15] MEDS: LOPRESSOR PO SCH ×2 (05:24→17:45)
[2016-05-15] MEDS: ZOSYN 3.375 GM/NS 50 ML IV SCH ×4 (05:24→23:38)
[2016-05-15 05:26] LABS: ALLEN TEST YES; BE -5.5 mmoll (-3.0-3.0); BLOOD TYPE ARTERIAL; DRAW SITE R RADIAL; METHB 1.7 % (0.0-1.5); O2(CT) 12.3 mL/dL (15.0-23.0); PCO2(98.6) 38 mmHg (35-45); PO2(98.6) 88 mmHg (60-100); SAMPLE BLOOD; SAO2 98.7 % (95.0-100.0); THB 9.1 g/dL (11.5-17.4); pH(98.6) 7.33 (7.35-7.45)
[2016-05-15 05:27] LABS: MODALITY BI PAP
[2016-05-15] MEDS: HUMULIN R SUBQ SCH ×4 (06:19→20:30)
--- NOTE | 2016-05-15 07:32 | Diag Imaging Result Document ---
PROCEDURE NAME: CHEST-PORTABLE - 05/15/2016 AP PORTABLE CHEST, ERECT AT 0525 HOURS: FINDINGS: There is a right-sided chest tube. The pneumothorax, which was present on 05/12/2016, is no longer demonstrated. Thorax, which was previously present, has diminished in volume. There is continued opacification of the right lower lobe. The left lung is stable in appearance. IMPRESSION: Improved right pneumothorax.
[2016-05-15 08:01] LABS: EOS 3 % (1-10); LYMPHS 20 % (21-51); MONO 4 % (1-9)
[2016-05-15] MEDS: PULMICORT INH SCH ×2 (08:22→19:09)
[2016-05-15] MEDS: MUCOMYST 20% INH SCH ×2 (08:22→19:09)
[2016-05-15] MEDS: PROTONIX IV SCH (08:52)
[2016-05-15] MEDS: SODIUM CHLORIDE 0.9% INJ SCH (08:52)
[2016-05-15] MEDS: VITAMIN B-12 SL SCH (08:53)
[2016-05-15] MEDS: LEVEMIR SUBQ SCH ×2 (08:53→23:41)
[2016-05-15] MEDS: SODIUM BICARBONATE PO SCH ×2 (08:53→20:29)
[2016-05-15 09:40] LABS: URINE SOURCE CATH
[2016-05-15 09:50] LABS: BILIRUBIN URINE NEGATIVE (NEGATIVE); BLOOD URINE SMALL (NEGATIVE); CLARITY CLEAR (CLEAR); COLOR YELLOW; GLUCOSE URINE NEGATIVE (NEGATIVE); LEUKOCYTES URINE NEGATIVE (NEGATIVE); NITRITE URINE NEGATIVE (NEGATIVE); PH URINE 5.5; PROTEIN URINE TRACE mg/dL (NEGATIVE); SP GRAVITY URINE 1.025; UROBILINOGEN URINE 0.2 EU/dL (0.2-1.0)
[2016-05-15 09:51] LABS: URINE EPITHELIAL CELLS <10 /HPF (<10); URINE RBC <10 /HPF (<10); URINE WBC <10 /HPF (<10)
[2016-05-15 09:52] LABS: URINE CRYSTAL URIC ACID PRESENT /HPF
--- NOTE | 2016-05-15 11:15 | PROGRESS NOTE ---
DATE: 05/15/2016 SUBJECTIVE: He is much more alert today. He is able to interact and answer questions. Denies pain or shortness of breath. OBJECTIVE: Vital Signs: Blood pressure 139/72, heart rate 73, respirations 13, afebrile. Intake 3.3 L. Output 1.3 L. PHYSICAL EXAM: No acute distress.Skin: Warm and dry. HEENT: Conjunctivae are pink. Neck: Neck veins are not distended. Heart: Regular. No gallops. Lungs: Have equal breath sounds. No crackles. Abdomen: Soft and nontender with normal bowel sounds. Extremities: Have no edema, clubbing, or cyanosis. LABORATORY DATA: Sodium 142, potassium 3.4, chloride 109, bicarbonate 19, BUN 26, creatinine 2.4. IMPRESSION: 1. Acute kidney injury. His labs have stabilized in the last 24 hours. He has good urine output though he is still in positive fluid balance. He had does not have obvious volume overload by exam. We will recheck HIS urine electrolytes today and continue his IV fluids. 2. Electrolytes: Hypokalemia is improved following treatment. 3. Acid-base is approximately stable. Anion gap is minimal.
[2016-05-15 11:52] LABS: UR CREAT RANDOM 117.9 mg/dL (14-26)
--- NOTE | 2016-05-15 15:48 | PROGRESS NOTE ---
DATE: 05/15/2016 PRESENT ILLNESS: The patient has a right lower lobe opacity and an improved right pneumothorax and also has a tumor in it. MEDICATIONS: The patient is on Zyvox and Zosyn. This is day 4 of treatment with the antibiotics. PHYSICAL EXAMINATION: Vital Signs: Temperature is 97.7 degrees, pulse 79, respirations 20, blood pressure 149/76. General: This is an ill-appearing, elderly male who looks much better today. He is up in bed eating. Does not seem to be in any respiratory distress. Lungs: There were bilateral rhonchi. Cardiovascular: Heart rate is regular. Abdomen: Soft and nontender. LAB AND X-RAY: Chest x-ray shows right lower lobe opacity and less of a right pneumothorax. Pleural fluid cytology was negative. Pleural fluid bronchial washings and blood all are not growing anything. The patient's CBC today white count is 20,140, hemoglobin 8.9, and platelet count 507,000. Blood gases show a pH of 7.33, a PO2 of 88, and a pCO2 of 38. Creatinine is 2.4. The GFR is 27. ASSESSMENT AND PLAN: Patient has pneumonia. I plan to continue his current antibiotics pending culture results and lung biopsy results. COMORBIDITIES: He is elderly, has a history of smoking and because of that he must have chronic obstructive pulmonary disease. Patient also has gastroesophageal reflux disease which could predispose to aspiration pneumonia.
[2016-05-15] MEDS: MORPHINE IV PRN (17:45)
[2016-05-15] MEDS: LOVENOX SUBQ SCH (17:45)
[2016-05-15] MEDS ORDERED: KLOR-CON PO ONE (19:16)
[2016-05-15] MEDS ORDERED: MAGNESIUM SULFATE 2 GM/S.W.I. 50 ML IV ONE (19:24)
--- NOTE | 2016-05-15 19:45 | PROGRESS NOTE ---
DATE: 05/15/2016 SUBJECTIVE: The patient was awake and alert this morning. According to family, he ate a good bit of his breakfast. OBJECTIVE: Vital Signs: Temperature 97.9 degrees, blood pressure 158/72, heart rate 84, respirations 22, O2 saturations 98% on 3 L nasal cannula. General: This is a chronically ill- appearing, elderly male, lying in bed, in no acute distress. Head: Normocephalic atraumatic. Heart: S1, S2. Normal. Regular rate and rhythm. Lungs: Clear to auscultation bilaterally. No wheezes, no rales. No rhonchi. Abdomen: Positive bowel sounds. Soft, nontender, nondistended. Extremities: No edema. No cyanosis. No calf tenderness. Neurologic: The patient is awake and alert. He is able to move all 4 extremities. LABS: White blood cell count 20, hemoglobin 8.9, hematocrit 28, platelets 507, sodium 142, potassium 3.4, chloride 109, CO2 19, BUN 26, creatinine 2.4, glucose 223, magnesium 1.5, phosphorus 3.9. ASSESSMENT AND PLAN: 1. Pneumonia. Continue on the current IV antibiotic regimen as per Dr. Alejandre. 2. Right lower lobe lung mass status post biopsy. We are currently awaiting the pathology results. Management as per the husker operator. 3. Right pneumothorax status post chest tube placement. This appears to be improving on chest x- ray. Management as per the general surgeon. 4. Acute kidney injury. Unchanged. Management as per the skilled helper. The patient remains on IV fluids. 5. Metabolic acidosis. Stable. 6. Severe protein calorie malnutrition. Continue on Ensure. The patient has now been advanced to a mechanical soft diet. 7. Uncontrolled insulin-dependent diabetes mellitus type 2. Continue on Levemir twice a day plus sliding scale insulin. 8. Vitamin B12 deficiency. Continue on vitamin B12 replacement. 9. Hypomagnesemia. Will replace the patient's magnesium. 10. Hypokalemia. Will replace the patient's potassium. 11. DVT prophylaxis. Continue on Lovenox.
[2016-05-15] MEDS: COLACE PO SCH (20:29)
[2016-05-15] MEDS: DULCOLAX PR SCH (20:30)
[2016-05-16] MEDS: CARDIZEM PO SCH ×2 (00:19→08:22)
[2016-05-16] MEDS: NS 1,000 ML IV SCH ×3 (00:20→21:24)
[2016-05-16] MEDS: ATROVENT NEB INH SCH ×6 (02:48→23:36)
[2016-05-16] MEDS: XOPENEX NEB INH SCH ×6 (02:48→23:36)
[2016-05-16] MEDS: ZOSYN 3.375 GM/NS 50 ML IV SCH ×4 (05:02→23:32)
[2016-05-16] MEDS: LOPRESSOR PO SCH ×2 (05:02→18:03)
[2016-05-16] MEDS: ZYVOX PO SCH ×2 (05:02→18:04)
[2016-05-16] MEDS: HUMULIN R SUBQ SCH ×4 (06:30→21:23)
[2016-05-16 06:36] LABS: MANUAL DIFF NEEDED? NO
[2016-05-16 06:52] LABS: BASO% 0.2 % (0.0-0.8); EOS# 0.45 X1000 (0.0-0.7); EOS% 2.6 % (0.0-10.0); HEMATOCRIT 34.3 % (42.0-52.0); HEMOGLOBIN 10.6 g/dL (14.0-18.0); IMM GRAN# 0.09 X1000 (0.0-0.04); IMM GRAN% 0.5 % (0.0-0.5); LYMPH# 1.82 X1000 (1.2-3.4); LYMPH% 10.4 % (20.5-51.1); MCH 24.1 PG (27-31); MCHC 30.9 g/dL (33-37); MONO# 1.02 X1000 (0.11-0.59); MONO% 5.8 % (1.7-9.3); MPV 9.9 FL (7.4-10.4); NEUT% 80.5 % (42.2-75.2); PLT 560 X1000 (130-400)
[2016-05-16 07:02] LABS: ALBUMIN 1.9 g/dL (3.5-5.0); CALCIUM 8.5 mg/dL (8.8-10.2); MAGNESIUM 1.9 mg/dL (1.5-2.7); POTASSIUM 3.6 mmol/L (3.5-5.1)
--- NOTE | 2016-05-16 07:39 | Diag Imaging Result Document ---
PROCEDURE NAME: CHEST-PORTABLE - 05/16/2016 SINGLE FRONTAL RADIOGRAPH OF THE CHEST: COMPARISON: 05/15/2016. FINDINGS: Right thoracostomy tube is in stable position. There is still a small right apical pneumothorax. It is probably stable given slight differences in positioning. Consolidation at the right lung base is approximately stable. No new consolidations identified. Cardiac silhouette is stable. IMPRESSION: Essentially stable chest.
[2016-05-16] MEDS: MUCOMYST 20% INH SCH ×2 (08:11→19:29)
[2016-05-16] MEDS: PULMICORT INH SCH ×2 (08:11→19:29)
[2016-05-16] MEDS: MIRALAX PO SCH (08:21)
[2016-05-16] MEDS: PROTONIX IV SCH (08:21)
[2016-05-16] MEDS: SODIUM CHLORIDE 0.9% INJ SCH (08:21)
[2016-05-16] MEDS: SODIUM BICARBONATE PO SCH ×2 (08:22→21:24)
[2016-05-16] MEDS: VITAMIN B-12 SL SCH (08:22)
[2016-05-16] MEDS: LEVEMIR SUBQ SCH ×2 (08:22→21:23)
[2016-05-16] MEDS: COLACE PO SCH ×2 (08:22→21:25)
[2016-05-16] MEDS: LABETALOL IV PRN (08:44)
[2016-05-16] MEDS ORDERED: VITAMIN D PO SCH (09:15)
--- NOTE | 2016-05-16 11:50 | PROGRESS NOTE ---
DATE: 05/16/2016 SUBJECTIVE: He states he is feeling better. He does not complain of pain or shortness of breath today. OBJECTIVE: Vital Signs: Blood pressure 187/99 heart rate 81, respirations 26 afebrile. Intake is 4.2 L. Output 2.4 L. General: No acute distress. Skin: Warm and dry. Conjunctivae are pink. Neck: Neck veins are not distended. Heart: Regular without gallops. Lungs: Have equal breath sounds. No crackles. Abdomen: Soft, nontender. Bowel sounds are present. Extremities: Have no edema, clubbing, or cyanosis. LABORATORY DATA: Sodium 138, potassium 3.6, chloride 106, bicarbonate 18, BUN 26, creatinine 2.0. IMPRESSION: 1. Acute kidney injury. Likely acute tubular necrosis from contrast. Improving. Good urine output. 2. Electrolytes and acid-base status are acceptable. 3. No changes from my perspective.
[2016-05-16] MEDS: CARDIZEM CD PO SCH (12:47)
[2016-05-16] MEDS ORDERED: ZOFRAN IV PRN (14:28)
--- NOTE | 2016-05-16 15:57 | PROGRESS NOTE ---
DATE: 05/16/2016 SUBJECTIVE: The patient is sitting up comfortably eating breakfast. He did have some mild nausea this morning, but that has resolved. OBJECTIVE: Vital Signs: Temperature 97.8 degrees, blood pressure 176/89, heart rate 77, respirations 21, O2 saturation 97% on 3 L nasal cannula. General: This is a chronically ill- appearing, elderly male, lying in bed in no acute distress. Head: Normocephalic, atraumatic. Heart: S1, S2. Normal. Regular rate and rhythm. Lungs: Coarse breath sounds bilaterally. No crackles. No rales. Abdomen: Positive bowel sounds. Soft, nontender, nondistended. Extremities: No edema. No cyanosis. Neurologic: The patient is alert and oriented. LABS: White blood cell count 17, hemoglobin 10, hematocrit 34, platelets 560. Sodium 138, potassium 3.6, chloride 106, CO2 18, BUN 26, creatinine 2, glucose 79. Magnesium 1.9. Phosphorus 3.1. ASSESSMENT AND PLAN: 1. Pneumonia. Continue on the current intravenous antibiotic regimen as directed by Dr. Alejandre. 2. Lung mass status post biopsy. The pathology report is currently pending. 3. Acute kidney injury. Slowly improving. Continue on intravenous fluids. 4. Metabolic acidosis. Unchanged. 5. Diabetes mellitus type 2. Continue on Levemir 15 units subcutaneous twice a day. 6. Severe protein calorie malnutrition. Continue on Ensure Plus. The patient will be encouraged to eat more. 7. Right pneumothorax ,status post chest tube placement. Slowly improving. 8. Deep vein thrombosis prophylaxis. Continue on Lovenox. 9. We will transfer the patient to the medical floor. 10. Continue with physical therapy.
--- NOTE | 2016-05-16 17:07 | CONSULTATION ---
DATE OF CONSULTATION: 05/16/2016 CONSULTATION IS FOR: Newly diagnosed non-small cell lung cancer. HISTORY OF PRESENT ILLNESS: Mr. Carrero is a 71-year-old male who presented with signs and symptoms of pneumonia. Imaging was done and he was found to have a spiculated left upper lobe nodule as well as a possible right lung mass. He also was found have a right pleural fluid collection. Bronchoscopy revealed that the patient has a tumor causing extrinsic compression to his distal bronchus intermedius. Status post biopsies via bronchoscopy. Preliminary shows it to be squamous cell carcinoma consistent with non-small cell lung cancer. The patient is currently in the ICU being treated for his postobstructive pneumonia. It was decided that he is not a surgical candidate. We have been consulted due to his new diagnosis of cancer. PAST MEDICAL HISTORY: 1. Diabetes mellitus type 2. 2. Hypertension. 3. . 4. Coronary artery disease. 5. PA. 6. COPD. 7. Seasonal allergies. 8. GERD. 9. Dementia. PAST SURGICAL HISTORY: None. SOCIAL HISTORY: Patient quit smoking about 2 months ago but previous to that, he smoked about 4 packs per day for 40 or more years. He denies any alcohol or illicit drug use. Patient currently lives with his daughter. He uses a walker or wheelchair to get around. He is hard of hearing. FAMILY HISTORY: Positive for CVA. Also positive for 3 brothers who from lung cancer. All 3 brothers worked in the [email or web address] business. They apparently had mesothelioma. REVIEW OF SYSTEMS: As per HPI. All else negative and noncontributory.Vital Signs: Temperature 97.8 degrees, heart rate 77, respiration 21, blood pressure 176/89, O2 saturation is 97% on 3 L nasal cannula. General: A 71-year-old, male, lying in hospital bed in the ICU. He is in no apparent acute distress at this time. Ears, nose, throat, neck, and mouth: Oral mucosa is normal. Trachea is midline. Gross auditory acuity is intact. Trachea is midline. Cardiovascular: Regular rate and rhythm. S1-S2 heard. No murmurs, gallops, or rubs appreciated. Respiratory: Coarse bilateral breath sounds with some rhonchi scattered. Normal respiratory effort. Gastrointestinal: Abdomen is soft and nondistended. Positive bowel sounds. Musculoskeletal: No bony abnormalities. Extremities: Patient has +1 edema x4 extremities. Neurologic: Patient is alert and oriented x3 with no focal motor deficits. DIAGNOSTIC DATA: Patient has a low white blood cell count of 12.78, hemoglobin of 9.2, and platelet count of 513,000. Cytology has been negative. CT of chest, abdomen and pelvis as per the HPI. Sodium 138, potassium 3.6, chloride 106, CO2 18, BUN 26, creatinine 2.0, glucose 79. ASSESSMENT/PLAN: 1. Postobstructive pneumonia. Patient will continue on his current management with O2 support as well as nebulizer treatments and IV antibiotics. 2. New non-small cell lung cancer. Patient is not a surgical candidate. Will wait for him to recover and then see me as an outpatient to plan further treatment at that time. 3. Pleural effusion/pneumothorax. Patient is status post chest tube placement. We will continue to follow. Continue management as per Pulmonology and Surgery. 4. Diabetes mellitus type 2. Continue current management. I want to thank you for allowing us to participate in Mr. Carrero's care while he is here at [facility]. We will continue to follow along and adjust our treatment plan per his hospital course. Dictated by GIGI Zuniga for Hiwot Saldana MD
--- NOTE | 2016-05-16 17:08 | PROGRESS NOTE ---
DATE: 05/16/2016 PRESENT ILLNESS: The patient has a right lower lobe opacity which includes a tumor in it. There is an improving right pneumothorax. MEDICATIONS: This is day 5 of treatment with Zyvox and Zosyn. PHYSICAL EXAMINATION: Vital Signs: Temperature is 98 degrees, pulse 77, respirations 22, blood pressure 194/89. General: This is a chronically ill-appearing, elderly male. He is in no acute distress. Cardiovascular: Heart rate is regular. Lungs: Clear to auscultation. Abdomen: Soft and nontender. Neurologic: Patient is awake. He can move his extremities. There is no tremor. LAB AND X-RAY: The chest x-rays shows a right lower lobe consolidation and the presence of a right chest tube in place. [place] [address], hemoglobin 10.6, and platelet count 560,000. Patient's creatinine is 2. The GFR is 33. All the bronchial washings thus far, are sterile. One has a gram-positive coccus seen in it and the other one has a yeast seen in it. The biopsy of the lung tumor is pending. ASSESSMENT AND PLAN: The patient has pneumonia. I plan to continue his current antibiotic therapy consisting of Zyvox and Zosyn pending the final results of cultures and lung biopsy. COMORBIDITIES: Including he is elderly and he has a history of smoking which predisposes him to have chronic obstructive pulmonary disease. Patient also has gastroesophageal reflux.
[2016-05-16] MEDS: LOVENOX SUBQ SCH (18:06)
--- NOTE | 2016-05-16 18:42 | Diag Imaging Result Document ---
PROCEDURE NAME: KUDarion ABDOMEN - 05/16/2016 PORTABLE AP SUPINE ABDOMEN: COMPARISON: No comparison exam. FINDINGS: There are artifacts from grid lines which mildly limit detail. There is mild gaseous distention of the stomach. There is mild gaseous distention of the colon to the splenic flexure region. There is no substantial gaseous small bowel distention identified. There is an apparent Loza catheter at the pelvis. There is lumbar spondylosis noted. IMPRESSION: Mild gaseous distention of stomach. Nonspecific bowel gas pattern, otherwise.
[2016-05-16] MEDS: DULCOLAX PR SCH (21:23)
[2016-05-16] MEDS: ATIVAN IV PRN (23:36)
[2016-05-17] MEDS: ATROVENT NEB INH SCH ×6 (03:27→23:13)
[2016-05-17] MEDS: XOPENEX NEB INH SCH ×6 (03:28→23:13)
[2016-05-17] MEDS ORDERED: INSULIN PEN NEEDLES ONE (06:05)
[2016-05-17 06:18] LABS: MANUAL DIFF NEEDED? NO
[2016-05-17 06:22] LABS: BASO% 0.3 % (0.0-0.8); EOS# 0.52 X1000 (0.0-0.7); EOS% 3.5 % (0.0-10.0); HEMATOCRIT 31.7 % (42.0-52.0); IMM GRAN# 0.12 X1000 (0.0-0.04); IMM GRAN% 0.8 % (0.0-0.5); LYMPH# 1.95 X1000 (1.2-3.4); LYMPH% 13.2 % (20.5-51.1); MCH 24.3 PG (27-31); MCHC 31.5 g/dL (33-37); MCV 76.9 FL (81-99); MONO# 1.11 X1000 (0.11-0.59); MONO% 7.5 % (1.7-9.3); MPV 9.9 FL (7.4-10.4); NEUT% 74.7 % (42.2-75.2); PLT 613 X1000 (130-400); RBC 4.12 XMIL (4.7-6.1)
--- NOTE | 2016-05-17 06:31 | PROGRESS NOTE ---
DATE: 05/17/2016 SUBJECTIVE: The patient is resting comfortably. No major issues. OBJECTIVE: Vital Signs: Patient is currently afebrile. His vital signs have been stable. Chest tube output has been recorded at 150. He did have recorded emesis of 30 mL. He also had a bowel movement recorded. General: Patient resting comfortably in no acute distress in his bed. Cardiovascular: Regular rate and rhythm. Lungs: Equal breath sounds. No increased labor of breathing. Chest tube in place. Abdomen: Soft, nontender, nondistended. ASSESSMENT/PLAN: A 71-year-old male with lung cancer. Also, with right pleural effusion. 1. Multiple medical comorbidities to be managed by the primary team. 2. New [id number] lung cancer seen by Oncology. We will follow up with their recommendations. 3. Right pleural effusion. We will continue chest tube drainage for over the weekend. The patient did have a small apical pneumothorax on most recent chest x-ray. So, we will continue current treatment.
[2016-05-17] MEDS: ZOSYN 3.375 GM/NS 50 ML IV SCH ×3 (06:38→16:21)
[2016-05-17] MEDS: LOPRESSOR PO SCH ×3 (06:38→21:18)
[2016-05-17] MEDS: ZYVOX PO SCH ×2 (06:38→16:41)
[2016-05-17 06:49] LABS: ALBUMIN 2.1 g/dL (3.5-5.0); CALCIUM 8.9 mg/dL (8.8-10.2); POTASSIUM 3.9 mmol/L (3.5-5.1)
[2016-05-17] MEDS: MUCOMYST 20% INH SCH ×2 (07:13→19:11)
[2016-05-17] MEDS: PULMICORT INH SCH ×2 (07:13→19:11)
[2016-05-17] MEDS: HUMULIN R SUBQ SCH ×4 (08:06→21:15)
[2016-05-17] MEDS: COLACE PO SCH ×2 (08:10→21:19)
[2016-05-17] MEDS: VITAMIN B-12 SL SCH (08:10)
[2016-05-17] MEDS: CARDIZEM CD PO SCH (08:10)
[2016-05-17] MEDS: PROTONIX IV SCH (08:11)
[2016-05-17] MEDS: SODIUM CHLORIDE 0.9% INJ SCH (08:11)
[2016-05-17] MEDS: NS 1,000 ML IV SCH ×2 (08:47→16:40)
[2016-05-17] MEDS: LEVEMIR SUBQ SCH ×2 (08:49→21:13)
[2016-05-17] MEDS: MIRALAX PO SCH (08:50)
--- NOTE | 2016-05-17 08:51 | Diag Imaging Result Document ---
PROCEDURE NAME: CHEST-PORTABLE - 05/17/2016 AP PORTABLE CHEST AT 0500 HOURS: FINDINGS: There is a right chest tube. There is mild pulmonary edema. There are bilateral pleural effusions. Compared to the previous study of 05/16/2016, there has been no appreciable change considering the previous study did not include all of the left base. IMPRESSION: Essentially stable chest. Bilateral pleural effusions and pulmonary edema. The possibility of atelectasis versus pneumonia in the right lower lobe is suggested.
[2016-05-17] MEDS: SODIUM BICARBONATE PO SCH ×2 (09:30→21:15)
--- NOTE | 2016-05-17 17:24 | PROGRESS NOTE ---
DATE: 05/17/2016 SUBJECTIVE: The patient is sitting up in bed. His family is present at the bedside. He does not have any complaints at this time. No acute events noted overnight. OBJECTIVE: Vital Signs: Temperature 98.3 degrees, blood pressure 182/84, heart rate 87, respirations 16, O2 saturations 100% on 3 L nasal cannula. General: This is an elderly male, lying comfortably in bed, in no acute distress. Head: Normocephalic atraumatic. Heart: S1, S2. Normal. Regular rate and rhythm. Lungs: Clear to auscultation bilaterally. No wheezes, no rales. No rhonchi. Abdomen: Positive bowel sounds. Soft, nontender, nondistended. Extremities: The patient does have 2+ edema in the upper extremities and trace edema in the lower extremities. Neurologic: The patient is awake and alert. LABS: White blood cell count 14, hemoglobin 10, hematocrit 31, platelets 613, 000. Sodium 137, potassium 3.9, chloride 105, CO2 of 17. BUN 24, creatinine 1.7, glucose 131. Albumin 2.1. Chest x-ray: Bilateral pleural effusions and pneumonia. ASSESSMENT AND PLAN: 1. Pneumonia. Continue on Zosyn and Zyvox. 2. Right pneumothorax status post chest tube. Management as per the general surgeon. 3. Lung cancer. The patient was seen by the oncologist who recommended followup upon discharge from the hospital. The patient's power of regulatory attorney states that the patient stated that he does not want chemotherapy. 4. Acute kidney injury. Slowly improving. Continue to monitor closely. 5. Accelerated hypertension. We will increase the Lopressor to 50 mg oral twice a day. 6. Diabetes mellitus type 2. Continue on Levemir 15 units subcutaneous twice a day. 7. Severe protein calorie malnutrition. Continue on Glucerna. 8. Atrial fibrillation. Continue on Cardizem. 9. Constipation. Continue on scheduled laxatives. 10. Deep vein thrombosis prophylaxis. Continue on Lovenox. 11. Continue with physical therapy. 12. Disposition. The patient's family is requesting home health upon discharge. MTDD
[2016-05-17] MEDS: LOVENOX SUBQ SCH (17:44)
[2016-05-17] MEDS: ALBUMIN 25% IV SCH (17:55)
[2016-05-17] MEDS: DULCOLAX PR SCH (21:18)
[2016-05-18] MEDS: ZOSYN 3.375 GM/NS 50 ML IV SCH ×5 (00:13→22:00)
[2016-05-18] MEDS: XOPENEX NEB INH SCH ×7 (03:14→23:20)
[2016-05-18] MEDS: ATROVENT NEB INH SCH ×7 (03:14→23:20)
[2016-05-18] MEDS: ZYVOX PO SCH ×2 (04:07→17:49)
[2016-05-18 06:19] LABS: MANUAL DIFF NEEDED? NO
[2016-05-18 06:25] LABS: BASO% 0.3 % (0.0-0.8); EOS# 0.47 X1000 (0.0-0.7); EOS% 4.2 % (0.0-10.0); HEMATOCRIT 29.6 % (42.0-52.0); HEMOGLOBIN 9.3 g/dL (14.0-18.0); IMM GRAN# 0.07 X1000 (0.0-0.04); IMM GRAN% 0.6 % (0.0-0.5); LYMPH# 1.97 X1000 (1.2-3.4); LYMPH% 17.8 % (20.5-51.1); MCH 24.1 PG (27-31); MCHC 31.4 g/dL (33-37); MCV 76.7 FL (81-99); MONO# 0.96 X1000 (0.11-0.59); MONO% 8.7 % (1.7-9.3); MPV 9.7 FL (7.4-10.4); NEUT% 68.4 % (42.2-75.2); PLT 581 X1000 (130-400); RBC 3.86 XMIL (4.7-6.1)
[2016-05-18] MEDS: HUMULIN R SUBQ SCH ×4 (06:40→22:00)
--- NOTE | 2016-05-18 07:16 | PROGRESS NOTE ---
DATE: 05/18/2016 SUBJECTIVE: Patient resting comfortably. No major issues. OBJECTIVE: Vital Signs: Patient is currently afebrile. His vital signs have been stable. Chest tube noted in place without air leak. They have not recorded the output. General exam: Resting comfortably. No acute distress. Cardiovascular: Regular rate, rhythm. Lungs : Equal breath sounds. No increased labor of breathing. Chest tube in place. No air leak. Abdomen: Soft, nontender, nondistended. ASSESSMENT AND PLAN: A 71-year-old male with lung cancer. Also with right pleural effusion. 1. Multiple medical comorbidities currently being managed by the primary team. 2. New non small cell lung cancer. Seen by oncology will follow up with a recommendation. 3. Right pleural effusion. We will continue chest tube drainage over the weekend. His apical pneumothorax seems to have improved and there is no obvious air leak. We will continue to follow. [facility]
--- NOTE | 2016-05-18 07:25 | Diag Imaging Result Document ---
PROCEDURE NAME: CHEST-PORTABLE - 05/18/2016 AP PORTABLE CHEST, 05/18/2016 AT 0500 HOURS.: FINDINGS: The right chest tube is again noted. There may be some residual right-sided pneumothorax but less than seen on 05/16/2016. This was not as evident on the previous study of 05/17/2016. There is clearly pleural fluid on both sides. There is bibasilar atelectasis or pneumonia which has not changed significantly since the previous study. IMPRESSION: Residual hydropneumothorax on the right. Bibasilar atelectasis.
[2016-05-18] MEDS: MUCOMYST 20% INH SCH ×2 (07:28→18:53)
[2016-05-18] MEDS: PULMICORT INH SCH ×2 (07:28→18:54)
[2016-05-18 07:35] LABS: ALBUMIN 2.4 g/dL (3.5-5.0); MAGNESIUM 1.8 mg/dL (1.5-2.7); POTASSIUM 3.6 mmol/L (3.5-5.1)
[2016-05-18] MEDS: PROTONIX IV SCH (08:16)
[2016-05-18] MEDS: SODIUM CHLORIDE 0.9% INJ SCH (08:16)
[2016-05-18] MEDS: ALBUMIN 25% IV SCH (08:19)
[2016-05-18] MEDS: COLACE PO SCH ×2 (08:22→22:05)
[2016-05-18] MEDS: MIRALAX PO SCH (08:22)
[2016-05-18] MEDS: LEVEMIR SUBQ SCH ×2 (08:24→21:59)
[2016-05-18] MEDS: SODIUM BICARBONATE PO SCH ×2 (08:25→21:57)
[2016-05-18] MEDS: APRESOLINE PO SCH ×3 (08:26→21:58)
[2016-05-18] MEDS: LOPRESSOR PO SCH ×2 (08:26→21:58)
[2016-05-18] MEDS: VITAMIN B-12 SL SCH (08:26)
[2016-05-18] MEDS: CARDIZEM CD PO SCH (08:26)
[2016-05-18] MEDS ORDERED: LASIX ONE (13:34)
[2016-05-18] MEDS ORDERED: LASIX IV ONE (13:35)
[2016-05-18 13:48] LABS: ALLEN TEST YES; BE -3.3 mmoll (-3.0-3.0); BLOOD TYPE ARTERIAL; DRAW SITE R RADIAL; METHB 1.8 % (0.0-1.5); O2(CT) 13.2 mL/dL (15.0-23.0); PCO2(98.6) 35 mmHg (35-45); PO2(98.6) 68 mmHg (60-100); SAMPLE BLOOD; SAO2 96.2 % (95.0-100.0); THB 10.1 g/dL (11.5-17.4); pH(98.6) 7.39 (7.35-7.45)
[2016-05-18 13:49] LABS: MODALITY BI PAP
--- NOTE | 2016-05-18 14:21 | PROGRESS NOTE ---
DATE: 05/18/2016 SUBJECTIVE: The patient is resting comfortably in bed. He has no complaints. He states that he wants his Loza catheter taken out. OBJECTIVE: Vital Signs: Temperature 97 degrees, blood pressure 164/79, heart rate 70, respirations 16, O2 saturations 98% on 2 L nasal cannula. General: This is chronically ill- appearing elderly male lying in bed in no acute distress. Head: Normocephalic, atraumatic. Heart: S1, S2. Normal. Regular rate and rhythm. Lungs: Coarse breath sounds. No crackles. No rales. Abdomen: Positive bowel sounds. Soft, nontender, nondistended. Extremities: The patient does have edema in his upper extremities and trace edema in the lower extremities. Neurologic: The patient is awake and alert. No focal neurologic deficits noted. LABS: White blood cell count 11, hemoglobin 9.3, hematocrit 29, platelets 581,000. Sodium 136, potassium 3.6, chloride 102, CO2 19, BUN 21, creatinine 1.4, glucose 206, phosphorus 3, magnesium 1.8, albumin 2.4. ASSESSMENT AND PLAN: 1. Postobstructive pneumonia. Continue on Zyvox and Zosyn. 2. Right pneumothorax status post chest tube. This appears to be improving slowly. Continue with management as per the general surgeon. 3. Lung cancer. Aware. The patient will follow up with Dr. Saldana upon discharge from the hospital. 4. Acute kidney injury. Improved. The patient's urine output is excellent. Will discontinue the IV fluids and monitor. 5. Accelerated hypertension. Will add hydralazine. Continue on Lopressor. 6. Severe protein calorie malnutrition. Continue on Glucerna. 7. Diabetes mellitus type 2. Continue on Levemir 15 units subcutaneous twice a day. 8. Atrial fibrillation. Continue on Cardizem. Cardiology is following. 9. Deep vein thrombosis prophylaxis. Continue on Lovenox. 10. Continue with physical therapy. 11. Disposition. The patient should be stable for discharge home once the chest tube has been removed. branch services manager has been consulted for initiation of home health.
--- NOTE | 2016-05-18 16:50 | Diag Imaging Result Document ---
PROCEDURE NAME: CHEST-PORTABLE - 05/18/2016 AP PORTABLE CHEST AT 1345 HOURS: FINDINGS: Compared to the previous study at 0500 hours, there is somewhat less optimal inspiration, otherwise there has been no significant change. There appears to be some residual pneumothorax on the right as well as bilateral pleural fluid collections and bibasilar atelectasis or pneumonia. IMPRESSION: Essentially stable since 0500.
[2016-05-18] MEDS: LOVENOX SUBQ SCH (17:49)
[2016-05-18] MEDS: DULCOLAX PR SCH (22:05)
[2016-05-19] MEDS: LABETALOL IV PRN (02:34)
[2016-05-19] MEDS: ATROVENT NEB INH SCH ×6 (02:44→23:48)
[2016-05-19] MEDS: XOPENEX NEB INH SCH ×6 (02:45→23:48)
[2016-05-19] MEDS: APRESOLINE PO SCH ×3 (05:59→22:03)
[2016-05-19] MEDS: ZYVOX PO SCH ×2 (05:59→16:41)
[2016-05-19] MEDS: HUMULIN R SUBQ SCH ×4 (06:06→22:06)
[2016-05-19 06:46] LABS: HEMATOCRIT 30.9 % (42.0-52.0); HEMOGLOBIN 9.4 g/dL (14.0-18.0); MCH 23.9 PG (27-31); MCHC 30.4 g/dL (33-37); MCV 78.4 FL (81-99); MPV 9.4 FL (7.4-10.4); RBC 3.94 XMIL (4.7-6.1)
[2016-05-19 07:17] LABS: ALBUMIN 2.9 g/dL (3.5-5.0); CALCIUM 9.6 mg/dL (8.8-10.2); MAGNESIUM 1.6 mg/dL (1.5-2.7); POTASSIUM 3.5 mmol/L (3.5-5.1)
[2016-05-19] MEDS: MUCOMYST 20% INH SCH ×2 (07:39→19:09)
[2016-05-19] MEDS: PULMICORT INH SCH ×2 (07:39→19:09)
--- NOTE | 2016-05-19 08:04 | PROGRESS NOTE ---
DATE: 05/19/2016 PRESENT ILLNESS: The patient has a right lower lobe opacity which has a tumor in it. There is an improving pneumothorax. MEDICATIONS: This is day 8 of treatment with Zyvox and Zosyn. PHYSICAL EXAMINATION: Vital Signs: Temperature is 98.8 degrees, pulse is 70, respirations 18, blood pressure 177/82. General: This is an ill-appearing, elderly male who is in no acute distress. Lungs: There were diminished breath sounds in the right base. The left side was clear. Cardiovascular: Heart rate is regular. Abdomen: Soft and nontender. Neurologic: Patient is lethargic and weak. He can move his extremities. LAB AND X-RAY: The bronchial washings showed gram-positive cocci and yeast. Cultures are pending. CBC shows a white count of 11,280, hemoglobin 9.4, and platelet count of 581,000. Creatinine is 1.3 and GFR is 54. ASSESSMENT AND PLAN: The patient has pneumonia and possibly a malignancy. My plan will be to continue Zyvox and Zosyn pending the pathology report of the lung biopsy and also pending final culture results from the bronchial washings. COMORBIDITIES: Include that he is elderly. He has a history of cigarette smoking which causes COPD. He also has gastroesophageal reflux disease.
--- NOTE | 2016-05-19 08:17 | Diag Imaging Result Document ---
PROCEDURE NAME: CHEST-PORTABLE - 05/19/2016 PORTABLE CHEST X-RAY, 05/19/2016: COMPARISON: 05/18/2016. FINDINGS: Stable right-sided chest tube. Stable right basilar opacity. Stable cardiomegaly and mild pulmonary vascular congestion. No edema. Stable left lower lobe infiltrate or atelectasis. No pneumothorax. IMPRESSION: No significant change from prior.
[2016-05-19] MEDS: ALBUMIN 25% IV SCH (08:49)
[2016-05-19] MEDS: PROTONIX IV SCH (08:53)
[2016-05-19] MEDS: SODIUM CHLORIDE 0.9% INJ SCH ×2 (08:53→18:41)
[2016-05-19] MEDS: CARDIZEM CD PO SCH (08:58)
[2016-05-19] MEDS: LOPRESSOR PO SCH ×2 (08:58→22:03)
[2016-05-19] MEDS: MIRALAX PO SCH (08:58)
[2016-05-19] MEDS: VITAMIN B-12 SL SCH (08:58)
[2016-05-19] MEDS: COLACE PO SCH ×3 (08:58→22:03)
[2016-05-19] MEDS: SODIUM BICARBONATE PO SCH ×2 (08:59→22:02)
[2016-05-19] MEDS: LEVEMIR SUBQ SCH ×2 (09:00→22:04)
[2016-05-19] MEDS: ZOSYN 3.375 GM/NS 50 ML IV SCH ×3 (11:01→22:02)
--- NOTE | 2016-05-19 17:31 | PROGRESS NOTE ---
DATE: 05/19/2016 SUBJECTIVE: The patient has no focal complaints. OBJECTIVE: Vital signs: Blood pressure 169/67, heart rate 73, respiratory rate 16, temperature 98.4 degrees. Cardiovascular: Regular rate and rhythm. Pulmonary: Bilateral breath sounds. Clear to auscultation. GI: Soft, nontender, nondistended. Bowel sounds are positive. LABORATORY DATA: His white count is 11, hemoglobin and hematocrit are 9 and 30, platelets 581,000 chemistries are unremarkable. Creatinine of 1.3. PROBLEM LIST: 1. Lung cancer with pneumothorax and postobstructive pneumonia. After further evaluation family has decided to pursue outpatient hospice for any further treatment. He has non-small cell cancer reportedly. 2. Right pneumothorax. Plan is to transition to a Pleurx tube so he can go home with that. 3. Postobstructive pneumonia. He is on Zosyn and Zyvox. Anticipate he will go home on Augmentin just to complete a course. Zyvox is day 6 and Zosyn is day 8. 4. Atrial fibrillation. Appears to be stable. 5. Disposition. Again we are setting up outpatient hospice. Could be as ready as tomorrow. May take 1-2 days just because of need for setting up equipment and then transitioning him to the Pleurx tube as described. We will continue to work on comfort care while he was here.
[2016-05-19] MEDS: LOVENOX SUBQ SCH (18:31)
[2016-05-19] MEDS: ATIVAN IV PRN (18:41)
[2016-05-19] MEDS: DULCOLAX PR SCH (22:07)
[2016-05-20] MEDS: ATROVENT NEB INH SCH ×4 (03:26→15:35)
[2016-05-20] MEDS: XOPENEX NEB INH SCH ×4 (03:26→15:36)
[2016-05-20] MEDS: ZOSYN 3.375 GM/NS 50 ML IV SCH ×3 (05:31→16:04)
[2016-05-20] MEDS: APRESOLINE PO SCH ×2 (05:31→12:56)
[2016-05-20] MEDS: ZYVOX PO SCH (05:31)
[2016-05-20] MEDS: HUMULIN R SUBQ SCH ×4 (05:47→16:05)
--- NOTE | 2016-05-20 07:34 | Diag Imaging Result Document ---
PROCEDURE NAME: CHEST-PORTABLE - 05/20/2016 PORTABLE CHEST X-RAY: COMPARISON: 05/19/2016. FINDINGS: Stable right basilar chest tube. Stable right basilar airspace opacity. Stable infiltrate at the left lower lobe as well. Stable cardiomegaly and mild pulmonary vascular congestion. IMPRESSION: No change from prior.
[2016-05-20] MEDS ORDERED: PEPCID PO ONE (07:35)
[2016-05-20] MEDS ORDERED: REGLAN PO ONE (07:35)
[2016-05-20] MEDS: LOPRESSOR PO SCH ×2 (07:51→09:30)
--- NOTE | 2016-05-20 08:13 | PROGRESS NOTE ---
DATE: 05/20/2016 PRESENT ILLNESS: The patient is being treated for pneumonia. Yesterday, the patient's report of the biopsy of the right lower lobe opacity came back and the patient does have cancer. MEDICATIONS: This is day 9 of treatment with Zyvox and Zosyn. PHYSICAL EXAMINATION: Vital Signs: Temperature is 97.5 degrees, pulse 73, respirations 16, blood pressure 182/80. General: This is an ill-appearing, elderly male who is in no acute distress. Lungs: Clear to auscultation. Cardiovascular: Regular heart rate. Abdomen: Soft and nontender. Thorax: Patient has a chest tube in place. LAB AND X-RAY: There is no new lab today and no new radiographic study for today. ASSESSMENT AND PLAN: Patient has pneumonia complicating lung cancer. He has had, as mentioned above, 9 days of treatment with Zyvox and Zosyn. It is my understanding that the patient wants to go home and does not want any treatment of his lung cancer. Today, he is scheduled to get a PleurX catheter and possibly tomorrow he could go home. I would suggest when he does go home, to treat him with a combination of Augmentin and Cipro for 5 days. I have gone ahead and written a prescription for it. The patient does not need to follow up with me because basically his malignancy is not going to be treated and he will be pursuing comfort measures. He will have a very guarded prognosis. COMORBIDITIES: Include he is elderly, he is a cigarette smoker, and he has COPD as well as gastroesophageal reflux disease.
[2016-05-20 08:21] LABS: HEMATOCRIT 29.3 % (42.0-52.0); HEMOGLOBIN 9.1 g/dL (14.0-18.0); MCH 24.3 PG (27-31); MCHC 31.1 g/dL (33-37); MCV 78.3 FL (81-99); MPV 8.8 FL (7.4-10.4); RBC 3.74 XMIL (4.7-6.1)
[2016-05-20] MEDS: PULMICORT INH SCH (08:26)
[2016-05-20] MEDS: MUCOMYST 20% INH SCH (08:26)
[2016-05-20] MEDS: PROTONIX IV SCH (08:27)
[2016-05-20 08:38] LABS: ALBUMIN 2.9 g/dL (3.5-5.0); CALCIUM 9.4 mg/dL (8.8-10.2); POTASSIUM 3.9 mmol/L (3.5-5.1)
[2016-05-20] MEDS ORDERED: DIPRIVAN 1% ONE (11:14)
[2016-05-20] MEDS: DILAUDID ONE ×2 (11:23→11:30)
[2016-05-20] MEDS ORDERED: LR 1,000 ML ONE (11:25)
[2016-05-20] MEDS ORDERED: ANESTHESIA PB SET 88 IN 5742 ONE (11:25)
[2016-05-20] MEDS ORDERED: XYLOCAINE-MPF 2% ONE (11:25)
[2016-05-20] MEDS ORDERED: EXTENSION SET 32 IN 4522 ONE (11:25)
[2016-05-20 12:17] VITALS: BP 191/86
[2016-05-20] MEDS ORDERED: APRESOLINE IV PRN (12:19)
[2016-05-20] MEDS: SODIUM BICARBONATE PO SCH (12:56)
[2016-05-20] MEDS: CARDIZEM CD PO SCH (12:56)
[2016-05-20] MEDS: VITAMIN B-12 SL SCH (12:56)
[2016-05-20] MEDS: MIRALAX PO SCH (12:57)
--- NOTE | 2016-05-20 12:57 | Diag Imaging Result Document ---
PROCEDURE NAME: CHEST-PORTABLE - 05/20/2016 PORTABLE CHEST X-RAY 05/20/2016 AT 1115 HOURS: COMPARISON: 0600 hours. FINDINGS: There has been removal of the original right chest tube. There may be a new right sided chest tubes as well, but if so, then the tip is probably in the chest wall soft tissues. No pneumothorax. Stable cardiomegaly. Stable central and bibasilar infiltrates. IMPRESSION: Indeterminate placement of a right-sided chest tube. Further imaging including chest CT recommended.
--- NOTE | 2016-05-20 12:58 | OPERATIVE NOTE ---
PROCEDURE DATE: 05/20/2016 PROCEDURE: Removal of right-sided chest tube; placement of right PleurX catheter. SURGEON: Aniceto Alvarado MD COMMUNICATIONS ENGINEERING TECHNICIAN: Annalise PREOPERATIVE DIAGNOSIS: Cancer of the right lung with effusion. POSTOPERATIVE DIAGNOSIS: Cancer of the right lung with effusion. INDICATIONS: This patient has had a chest tube in the right pleural space with continued drainage from the pleural space. He is now prepared for discharge home on hospice, we will convert him to a PleurX catheter. DESCRIPTION OF PROCEDURE: The patient was brought to the operating room, supine position was accomplished on the operating room table. Satisfactory monitored anesthesia care was established. We cut the stitch holding the right chest tube and removed it. The right lateral chest was prepped and draped in a sterile fashion. We anesthetized the skin posterior to the chest tube exit site and also another place inferior to the chest tube site. We made an incision and both areas anesthetized and tunneled the Pleurx catheter from the anterior inferior incision to the posterior lateral incision. We then used our hemostat to dissect over a rib into the pleural space. When we reached that, fluid came out. We introduced the introducer sheath into the pleural space. We removed the trocar and fluid came through the sheath, so we knew we were in the pleural space. We introduced the PleurX catheter then into the pleural space and peeled away the sheath. We then closed that posterior lateral wound with the 4-0 Polysorb stitch in a subcuticular fashion. We used a silk stitch to secure the PleurX catheter at the exit site using a horizontal mattress stitch. We then attached the Pleurx catheter to the suction canister and drained out 300 mL of fluid. We placed the sponge over the exit site of the Pleurx catheter and then covered the other incision also and cover that with OpSite. We placed Xeroform and 4x4s over the old chest tube exit site. He tolerated procedure satisfactorily, was sent to the recovery room in satisfactory condition.
--- NOTE | 2016-05-20 13:02 | PROGRESS NOTE ---
DATE: 05/20/2016 SUBJECTIVE: The patient is feeling much better today. He just had the PleurX placed on the right lung. Just a little sluggish but otherwise no issue. Family was at the bedside. All questions were invited and entertained. OBJECTIVE: Blood pressure 187/95, pulse of 94, respirations 16, temperature. 97.9.General Appearance: Thin cachectic white male, in no acute distress. HEENT: Anicteric. Clear conjunctivae. Poor dentition. Neck: Supple. No JVD. No bruit. Cardiovascular: S1, S2. Normal rate and rhythm. No murmur, rubs, or gallops. Pulmonary: Clear to auscultation bilaterally. GI: Soft, nontender, nondistended. Normoactive bowel sounds. Musculoskeletal: No clubbing, cyanosis, or edema. ASSESSMENT AND PLAN: This is a 71-year-old white male, admitted to the hospital for pneumonia and was found to have a complicated with lung cancer. 1. Lung cancer with pleural effusions and post obstructive pneumonia. The patient has a PleurX in place today. Hospice is making arrangement for equipment. Hopefully they can get it in today. The patient wants to go home as soon as the hospital can make the arrangement. 2. Right pneumothorax and again PleurX tube was placed just now. We will watch him later today or even tonight before sending him home. However, the family wished to get the patient home. I am okay for the patient to go as well. 3. Postobstructive pneumonia. The patient has been on Zosyn and Zyvox. Infectious Disease recommend Augmentin and Cipro on to go home with. 4. Atrial fibrillation. 5. Hypertension. Probably due to pain. We will continue p.r.n. hypertensive medications. 6. Disposition. We will get the patient home as soon as hospice can make the arrangements.
[2016-05-20] MEDS: COLACE PO SCH (16:04)
[2016-05-20] MEDS: LEVEMIR SUBQ SCH (16:04)
--- NOTE | 2016-05-20 18:20 | DISCHARGE SUMMARY ---
ADMISSION DATE: 05/11/2016 DISCHARGE DATE: 05/20/2016 CONSULTATIONS: 1. Jerad De La Rosa MD with Pulmonology 2. Kahlil Alejandre MD with Infectious Disease. 3. Ronny Murdock MD Nephrology. 4. Dr. Hiwot Saldana MD Oncology 5. Dr. Prieto with Cardiology 6. Aniceto Alvarado MD with General Surgery. PERTINENT PROCEDURES: 1. Echocardiogram showed an EF of 55%. 2. Chest CT showed very large right pleural effusion with marked right lung atelectasis, significant heterogeneity involving the atelectatic portions of the right lung, unclear if this was infectious or potentially due to parenchymal masses. Vaguely, a masslike density involving the atelectatic right lung in the posterior perihilar region, adjacent narrowing of the right mainstem bronchus either due to a mass affect or mucus plugging. Spiculated nodule in the left lower lobe. Pulmonary emphysema. 3. Right tube thoracostomy performed by Dr. Pool Alvarado. 4. Chest CT showed improved pneumonia atelectasis on the right, continued occlusion of the bronchus intermedius. Persistent pneumothorax on the right. No left pleural effusion and basilar atelectasis. Renal ultrasound showed no evidence of obstructive uropathy. 5. Bronchoscopy performed by Dr. De La Rosa. 6. Removal of a right-sided chest tube and placement of a right PleurX catheter performed by Dr. Pool Alvarado. DISCHARGE DIAGNOSES: 1. Lung cancer with pneumothorax and postobstructive pneumonia. Patient had a PleurX-X catheter drain placed today by Dr. Pool Alvarado. The patient will be going home with hospice. 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 2. Right pneumothorax. He has been transitioned to a Pleurx tube so he can go home with hospice. 3. Postobstructive pneumonia. The patient to go home with Cipro and Augmentin. 4. Atrial fibrillation was controlled. HOSPITAL COURSE: Briefly, the patient is a 71-year-old male, who carries a history of diabetes, hypertension, COPD, CVA and mild dementia who for 3 weeks prior to arrival per his daughter had upper respiratory infection symptoms but refused to go the doctor. On the morning of his admission when he asked to go to the restroom he was unable to stand. She said he felt hot. When she checked his temperature, it was 101.1 degrees. They proceeded to [facility] where he was found to have a heart rate in the 180's. He did receive 2 doses of adenosine which brought his heart rate back down and given his confused state at that time. Apparently he was nonverbal at [facility]. They did a head CT. Other findings there, he had a chest x-ray that showed a very large right pleural effusion. He was deemed medically necessary to transfer to [facility] for further workup. Here, a CT revealed a very large right pleural effusion which was unclear if it was infectious or mass. It also showed pulmonary emphysema. He was initially placed on a Venturi mask as the nasal cannula got on his nerves. Pulmonary, general surgery and Cardiology were consulted for further workup. He had about a 40 pound weight loss in the last 6 months and then for the last 4 mornings he had woken up with nausea and vomiting. Patient also admitted to getting strangled times when he eats. He was also having issues with insomnia. The patient was admitted to the ICU. He was made a DNR level 2 at that time with no chest compressions or intubation, but okay for drips for blood pressure but only temporarily. The patient was also placed on broad-spectrum antibiotics. He did undergo chest tube placement by Dr. Alvarado. He also underwent a bronchoscopy by Dr. De La Rosa that showed an apparent tumor causing significant eccentric compression to the distal bronchus intermedius with apparent tumor distal to the nares. 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 After further evaluation, the family and the patient decided to pursue outpatient hospice for further treatment. For the right pneumothorax, he transitions to a Pleurx tube today so he can go home with that. For his post obstructive pneumonia, he will continue with Cipro and Augmentin. Hospice was consulted. They have made all of the arrangements for equipment to be brought to his residence. He was continued on comfort care while he was here. The patient is appropriate for discharge home today. Every thing has been set up through Hospice. The appropriate arrangements have been made. DISCHARGE MEDICATIONS: 1. cold and flu tab 1 each p.o. p.r.n. 2. Atenolol inhaler 1 g inhaled p.r.n. 3. Flonase allergy relief nasally p.r.n. 4. Benazepril 40 mg p.o. daily. 5. Zyrtec 10 mg p.o. daily. 6. Glimepiride 4 mg p.o. daily. 7. Metformin 1000 mg p.o. b.i.d. 8. Toprol-XL 25 mg p.o. daily. 9. Cipro 500 mg p.o. b.i.d. for 7 days. 10. Ativan 1 mg p.o. q.4 hours p.r.n. 11. Roxanol 10 mg p.o. q.2 hours p.r.n. 12. Augmentin 875 mg p.o. q.12 hours for 7 days. 13. MiraLAX 17 g p.o. daily. 14. Pioglitazone 45 mg p.o. at bedtime. FOLLOWUP: The patient is being discharged home with outpatient hospice care. DISCHARGE TIME: Greater than 30 minutes. Dictated by DEVORA Amaya for Lico Self MD Addendum: I have evaluated and examined the patient in conjunction to the [employer] and agreed with her disposition. He wants to go home with home hospice. Discussed with the patient and family LUZ MARIA
[2016-05-20] MEDS ORDERED: PERIDEX MT SCH (21:00)
== END 2016-05-20 16:48 | disposition hospice, home (50) | DRG 180 ==
LOC: DIRADM 10:16 → ICU 11:35 → 4N 05-16 15:30
PROVIDERS: ATTEND Internal Medicine
PROC: 0W9930Z Drainage of Right Pleural Cavity with Drainage Device, Percutaneous Approach (ICD-10-PCS; principal; 2016-05-11)
PROC: 0BB68ZX Excision of Right Lower Lobe Bronchus, Via Natural or Artificial Opening Endoscopic, Diagnostic (ICD-10-PCS; 2016-05-14)
PROC: 0BB18ZX Excision of Trachea, Via Natural or Artificial Opening Endoscopic, Diagnostic (ICD-10-PCS; 2016-05-14)
PROC: 0BB38ZX Excision of Right Main Bronchus, Via Natural or Artificial Opening Endoscopic, Diagnostic (ICD-10-PCS; 2016-05-14 09:29)
PROC: 0W9930Z Drainage of Right Pleural Cavity with Drainage Device, Percutaneous Approach (ICD-10-PCS; 2016-05-20)
DX: C34.01 Malignant neoplasm of right main bronchus (principal); J18.9 Pneumonia, unspecified organism; J96.90 Respiratory failure, unspecified, unspecified whether with hypoxia or hypercapnia; E43 Unspecified severe protein-calorie malnutrition; N17.9 Acute kidney failure, unspecified; I48.92 Unspecified atrial flutter; E11.65 Type 2 diabetes mellitus with hyperglycemia; E87.2 Acidosis; J90 Pleural effusion, not elsewhere classified; I47.1 Supraventricular tachycardia; I48.91 Unspecified atrial fibrillation; F03.90 Unspecified dementia, unspecified severity, without behavioral disturbance, psychotic disturbance, mood disturbance, and anxiety; J44.0 Chronic obstructive pulmonary disease with (acute) lower respiratory infection; J98.11 Atelectasis; I69.954 Hemiplegia and hemiparesis following unspecified cerebrovascular disease affecting left non-dominant side; J95.811 Postprocedural pneumothorax; E83.42 Hypomagnesemia; E11.9 Type 2 diabetes mellitus without complications; D63.8 Anemia in other chronic diseases classified elsewhere; D47.3 Essential (hemorrhagic) thrombocythemia; E87.6 Hypokalemia; I25.10 Atherosclerotic heart disease of native coronary artery without angina pectoris; I25.2 Old myocardial infarction; I10 Essential (primary) hypertension; E53.8 Deficiency of other specified B group vitamins; K21.9 Gastro-esophageal reflux disease without esophagitis; M48.00 Spinal stenosis, site unspecified; G47.00 Insomnia, unspecified; K59.00 Constipation, unspecified; Z66 Do not resuscitate; Z79.899 Other long term (current) drug therapy; Z87.891 Personal history of nicotine dependence; Z68.21 Body mass index [BMI] 21.0-21.9, adult; Z82.49 Family history of ischemic heart disease and other diseases of the circulatory system; Z82.3 Family history of stroke; Z83.3 Family history of diabetes mellitus
CPT/HCPCS: 71010; 71250; 74000; 76770; 80048; 80053; 80061; 80069; 80202; 81001; 82042; 82270; 82306; 82378; 82550; 82570; 82607; 82728; 82746; 82784; 82805; 82945; 82948; 83036; 83540; 83550; 83605; 83615; 83721; 83735; 83880; 83935; 83986; 84100; 84134; 84156; 84157; 84300; 84439; 84443; 84484; 84540; 85025; 85027; 87015; 87040; 87070; 87075; 87088; 87102; 87116; 87147; 87205; 87206; 87899; 88112; 88305; 88341; 88342; 89051; 93005; 93010; 93306; 94640; 94660; 94761; 94799; C1729; C1758; C9113; J0171; J0696; J1170; J1650; J1940; J2060; J2250; J2270; J2543; J3370; J3475; J3480; J7030; J7040; J7120; 92610-GN; 97110-GP; 97530-GO; 97530-GP; P9047; S0164